=== PATIENT | female | born 1950 | race Caucasian/White ===

== ENCOUNTER 2017-08-31 18:29 | Emergency (ER) ==
[2017-08-31 18:41] VITALS: BP 151/80; TEMP 99.3; BMI 30.8
[2017-08-31] MEDS ORDERED: SODIUM CHLORIDE 500 ML IV STA (19:19)
[2017-08-31] MEDS ORDERED: ZOFRAN 4 MG/2 ML IVP STA (19:19)
--- NOTE | 2017-08-31 19:22 | ED.PDOC ---
General ED Provider: Dr. CUATE CHRISTENSEN Chief Complaint: Diarrhea Stated Complaint: Came for the nausea vomiting since noon, not able to keep anything down, Time Seen by Physician: 19:20 Mode of Arrival: Stretcher Information Source: Patient Primary Care Provider: TITO MONIQUE Nursing and Triage Documentation Reviewed and Agree: Yes Reviewed sepsis parameters & appropriate labs ordered?: Yes System Inflammatory Response Syndrome: Not Applicable Sepsis Protocol: For patient's 13 years and over: Temp is 96.8 and below OR 101 and greater Pulse >90 BPM Resp >20/minute Acutely Altered Mental Status Are patient's symptoms suggestive of a new infection, such as: -Pneumonia -Skin, Soft Tissue -Endocarditis -UTI -Bone, Joint Infection -Implantable Device -Acute Abdominal Infection -Wound Infection -Meningitis -Blood Stream Catheter Infection -Unknown GI Complaint Exam - Vomiting/Diarrhea Complaint/Exam Symptoms Are: Resolved (here for 1 hr none) Episodes of Vomiting over last 24 Hours: 4 Initial Severity: Moderate Current Severity: None Character of Vomiting: Reports: Non-bilious Character of Diarrhea: Reports: Watery Aggravating: Reports: Food, Liquids Alleviating: Reports: None Associated Signs and Symptoms: Reports: Cramping. Denies: Dizziness, Light- headedness, Melena, Hematemesis, Fever, Abdominal pain Non-GI Risk Factors: Reports: None Surgical Obstruction Risk Factors: Reports: None Related Surgical History: Reports: None Abdominal Findings: Absent: Pulsatile mass, Abdominal distention, Unequal femoral pulses, Rebound tenderness Differential Diagnoses: Dehydration, Bacterial Gastroenteritis Review of Systems - Review Of Systems Constitutional: Reports: Malaise, Weakness Eyes: Reports: No symptoms Ears, Nose, Mouth, Throat: Reports: No symptoms Respiratory: Reports: No symptoms Cardiac: Reports: No symptoms GI: Reports: Diarrhea, Nausea, Vomiting : Reports: No symptoms Musculoskeletal: Reports: No symptoms Skin: Reports: No symptoms Neurological: Reports: No symptoms Endocrine: Reports: No symptoms Hematologic/Lymphatic: Reports: No symptoms All Other Systems: Reviewed and Negative Past Medical History - Past Medical History Previously Healthy: Yes Endocrine: Reports: Dyslipidemia Cardiovascular: Reports: CAD (s/p stents), Hypertension Respiratory: Reports: None Hematological: Reports: None Gastrointestinal: Reports: None Genitourinary: Reports: Kidney stones Neuro/Psych: Reports: None Musculoskeletal: Reports: Joint Pain Cancer: Reports: None Last Menstrual Period: unknown - Surgical History General Surgical History: Reports: Hysterectomy (partial x 2 ), Appendectomy, Cholecystectomy, Orthopedic (knee surgery), Other (h/o small bowel surgery secondary to adhesions) - Family History Family History: Reports: None - Social History Smoking Status: Former smoker Hx Substance Use: No Alcohol Screening: None Physical Exam - Physical Exam Appearance: Ill-appearing, Thin Ill-appearing: Mild Eyes: EOMI ENT: Ears normal, Nose normal, Oropharynx normal Respiratory: Airway patent, Breath sounds clear, Breath sounds equal, Respirations nonlabored Cardiovascular: RRR, Pulses normal, No rub, No murmur GI/: Soft (distended.), No masses, No Organomegaly, Tender (diffuse.), Bowel sounds hypoactive Musculoskeletal: Normal strength, ROM intact, No edema, No calf tenderness Skin: Warm, Dry, Normal color Neurological: Sensation intact, Motor intact, Reflexes intact, Cranial nerves intact, Alert, Oriented Psychiatric: Affect appropriate, Mood appropriate Interpretation - Radiology Interpretation Radiology Interpretation By: Radiologist Radiology Results: Positive Exam Interpreted: CT Scan Critical Care Note - Critical Care Note Total Time (mins): 30 Course - Course Hematology/Chemistry: 08/31/17 19:00 08/31/17 19:00 Orders, Labs, Meds: Lab Review 08/31/17 08/31/17 08/31/17 19:00 19:00 19:22 WBC 18.48 H RBC 4.67 Hgb 14.6 Hct 43.1 MCV 92.3 MCH 31.3 H MCHC 33.9 RDW Coeff of Nazario 13.3 Plt Count 223 Immature Gran % (Auto) 0.4 Neut % (Auto) 80.9 Lymph % (Auto) 8.4 L [place] % (Auto) 9.3 Eos % (Auto) 0.7 Baso % (Auto) 0.3 Immature Gran # (Auto) 0.1 Neut # (Auto) 14.9 H Lymph # (Auto) 1.6 [place] # (Auto) 1.7 Eos # (Auto) 0.1 Baso # (Auto) 0.1 Sodium 139 Potassium 4.1 Chloride 105 Carbon Dioxide 18 L Anion Gap 20.1 BUN 19 H Creatinine 0.84 Estimated GFR (MDRD) 67.00 BUN/Creatinine Ratio 22.61 Glucose 145 H Calcium 10.0 Total Bilirubin 2.2 H AST 52 H ALT 44 Alkaline Phosphatase 172 H Total Protein 8.2 H Albumin 3.9 Globulin 4.3 Albumin/Globulin Ratio 0.91 Amylase 49 Lipase 24 Influ A Molecular Assay Negative by naat Influ B Molecular Assay Negative by naat Orders Category Date Time Status AMYLASE Stat LAB 08/31/17 19:00 Completed CBC W/ AUTO DIFF Stat LAB 08/31/17 19:00 Completed COMPREHENSIVE METABOLIC PANEL Stat LAB 08/31/17 19:00 Completed FLU A/B MOLECULAR Stat LAB 08/31/17 19:22 Completed LIPASE Stat LAB 08/31/17 19:00 Completed 0.9 % Sodium Chloride [Saline Flush] MEDS 08/31/17 19:19 Ordered 1 syr IVF PRN PRN Ondansetron HCl/Pf [Zofran 4 mg/2 ml] MEDS 08/31/17 19:19 Discontinued 4 mg IVP ONCE STA Sodium Chloride 0.9% [Sodium Chloride] 500 ml MEDS 08/31/17 19:[address] ABDOMEN/PELVIS WO CONTRAST Stat RADS 08/31/17 19:19 Completed Medications Generic Name Dose Route Start Last Admin Trade Name Freq PRN Reason Stop Dose Admin Sodium Chloride 1 syr 08/31/17 19:19 08/31/17 19:30 Saline Flush IVF 1 syr PRN PRN Administration To flush IV Discontinued Medications Generic Name Dose Route Start Last Admin Trade Name Freq PRN Reason Stop Dose Admin Sodium Chloride 500 mls @ 500 mls/hr 08/31/17 19:19 08/31/17 19:27 Sodium Chloride IV 08/31/17 20:18 500 mls/hr BOLUS STA Administration Ondansetron HCl 4 mg 08/31/17 19:19 08/31/17 19:30 Zofran 4 Mg/2 Ml IVP 08/31/17 19:20 4 mg ONCE STA Administration Vital Signs: Temp Pulse Resp BP Pulse Ox 08/31/17 18:32 99.3 F 79 20 151/80 H 94 L Departure - Departure Time of Disposition: 20:40 Disposition: TSF SHORT-TRM HOSP Discharge Problem: Gastroenteritis, SBO (small bowel obstruction) Instructions: Gastroenteritis (ED) Condition: Stable Pt referred to PMD for follow-up: Yes IPMP verified?: No Additional Instructions: Talked to the family and discussed about the findings of possible SBO, 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 scan findings, will be transferring her to [facility] Allergies/Adverse Reactions: Allergies acetaminophen [From Tylenol] Adverse Reaction (Verified 08/31/17 18:42) codeine Adverse Reaction (Verified 04/14/14 12:43) hydromorphone HCl [From Dilaudid] Adverse Reaction (Verified 04/14/14 12:43) latex Adverse Reaction (Verified 04/14/14 12:43) meperidine HCl [From Demerol] Adverse Reaction (Verified 04/14/14 12:43) morphine Adverse Reaction (Verified 04/14/14 12:43) Home Medications: Ambulatory Orders Amlodipine Besylate [Norvasc] 5 mg PO BID 04/14/14 Aspirin [Aspirin Chewable] 81 mg PO DAILYWM 04/14/14 Clopidogrel Bisulfate [Clopidogrel] 75 mg PO DAILY 04/14/14 Fluticasone Propionate 16 gm NS DAILY 04/14/14 Potassium Chloride [K-Dur] 10 meq PO DAILY 04/14/14 Pravastatin Sodium [Pravachol] 40 mg PO BEDTIME 04/14/14 Dicyclomine HCl 10 mg PO Q6HR PRN 08/31/17 Hydrocodone/Acetaminophen [Hydrocodon-Acetaminophen 5-325] 1 each PO BID PRN 12/13 Disposition Discussed With: Patient, Family
--- NOTE | 2017-08-31 20:09 | CT ---
EXAM: CT abdomen pelvis without intravenous contrast 08/31/2017. Sagittal and coronal reformatted i mages obtained HISTORY: Gastroenteritis COMPARISON: 06/27/2015 FINDINGS: Subtle nodular contours of the anterior liver. Correlate for possible cirrhosis. The gallbladder has been removed. The adrenal glands and kidneys show no acute abnormality. Benign-appearing renal cysts. The spleen pancreas show no acute process. Aortoiliac stents are in place. Mildly dilated distal small bowel with air-fluid levels. Mild mucosal thickening of small bowel as s een anteriorly on image 85. These findings may represent enteritis/ileus. Surgical anastomoses of distal small bowel in the right lower quadrant. Multiple sites of fat containing ventral hernia. No bowel herniation. No free air or free fluid. IMPRESSION: 1. Subtle nodular contour of the liver. Correlate for cirrhosis. 2. Proximal to the site of surgical anastomoses the small bowel appears fluid-filled and mildly dila kya. Mild mucosal thickening. Multiple air fluid levels. This likely relates to enteritis/ileus. 3. If there is clinical suspicion for early or partial small bowel obstruction then small bowel seri es could be performed. 4. Multifocal fat containing ventral hernia. No bowel herniation. 5. Additional findings as above.
[2017-08-31] MEDS ORDERED: LIDOCAINE JELLY 2% MUCOUSMEMB STA (20:47)
== END 2017-08-31 21:34 | disposition short-term general hospital (02) ==
LOC: ED 18:29
DX: K52.9 Noninfective gastroenteritis and colitis, unspecified (principal); R53.1 Weakness; I10 Essential (primary) hypertension; E78.5 Hyperlipidemia, unspecified; I25.10 Atherosclerotic heart disease of native coronary artery without angina pectoris; Z95.5 Presence of coronary angioplasty implant and graft; Z87.442 Personal history of urinary calculi
CPT/HCPCS: 36415; 80053; 82150; 83690; 85025; 87502; 96361; 96374; 99285

== ENCOUNTER 2017-08-31 21:29 | Outpatient (CLI) | payer OTHER ==
[2017-08-31 18:41] VITALS: BMI 30.8
== END 2017-08-31 21:30 | disposition home or self-care (01) ==
LOC: AMBL 21:29
PROVIDERS: ATTEND Emergency Medicine
DX: K56.609 Unspecified intestinal obstruction, unspecified as to partial versus complete obstruction (principal)

== ENCOUNTER 2018-07-26 06:32 | Outpatient (CLI) ==
[2018-07-26] MEDS ORDERED: ATROPINE SULFATE PFS ONE (07:14)
[2018-07-26] MEDS ORDERED: DOBUTAMINE 500 MG-D5W 250 ML 250 ML IV ONE (07:14)
[2018-07-26] MEDS ORDERED: ATROPINE SULFATE PFS IVP STA (08:33)
[2018-07-26] MEDS ORDERED: DOBUTAMINE 500 MG-D5W 250 ML IV ONE (08:33)
--- NOTE | 2018-07-27 13:18 | ECHO2D ---
Date of Exam: 07/26/18 Ordering Physician: DR. TITO MONIQUE Room #: OP Reason for Echo: SOB, SURGICAL CLEARANCE M-Mode Normal Adult Results LV Dimensions Normal Adult Results AoV Opening excursions >1.6 >1.6 LVEDD-base- 3.5-5.8 4.8 Ao root dimensions 2.0-3.7 3.1 LVESD-base- 3.1-4.6 L. Atrium dimensions 1.9-3.8 3.6 Post. Wall thickness 0.8-1.1 1.1 IV septum (thickness) 0.7-1.2 1.1 Post. Wall excursion 0.72-1.3 NORMAL Septal motion NORMAL Systolic motion R. Ventricular cavity 1.5-2.0 NORMAL LVEF 60% 60% Paradoxical septal wall motion NORMAL 2-D : 2-D M Mode Echocardiogram was performed using apical four chamber and left parasternal long and short axis views. Mitral, tricuspid and aortic valves appear to be normal. Contractility of the left ventricle seems to be normal, so is the cavity size. Left atrial cavity size and aortic root appear to be normal. There is no pericardial effusion. There is no thrombus noted in the left ventricular or left aortic cavity. No mitral valve prolapse noted. M-MODE: MV: NORMAL AV: NORMAL TV: NORMAL PV: CHAMBER SIZE: NORMAL WALL MOTION: NORMAL PERICARDIUM: NORMAL INTERPRETATION: 1. NORMAL 2 "D" "M" ECHO MTDD
--- NOTE | 2018-07-27 13:21 | ECHOSTRESS ---
Date of Exam: 07/26/18 Ordering Physician: DR. TITO MONIQUE Reason for Echo: SOB, SURGICAL CLEARANCE, DOBUTAMINE STRESS--NO ISCHEMIA M-Mode Normal Adult Results LV Dimensions Normal Adult Results AoV Opening excursions >1.6 LVEDD-base- 3.5-5.8 Ao root dimensions 2.0-3.7 LVESD-base- 3.1-4.6 L. Atrium dimensions 1.9-3.8 Post. Wall thickness 0.8-1.1 IV septum (thickness) 0.7-1.2 Post. Wall excursion 0.72-1.3 Septal motion Systolic motion R. Ventricular cavity 1.5-2.0 LVEF 60% Paradoxical septal wall motion 2-D: NORMAL LEFT VENTRICULAR CONTRACTILITY--RESTING AND WITH DOBUTAMINE INFUSION M-MODE: MV: AV: TV: PV: CHAMBER SIZE: WALL MOTION: NORMAL LEFT VENTRICULAR CONTRACTILITY--RESTING AND WITH DOBUTAMINE INFUSION PERICARDIUM: INTERPRETATION: 1. NORMAL LEFT VENTRICULAR CONTRACTILITY--RESTING AND WITH DOBUTAMINE INFUSION MTDD
--- NOTE | 2018-07-27 13:30 | DOBSTECHO ---
Date of Test: 07/26/18 Ordering Physician: DR. TITO MONIQUE Smoking History: QUIT 10 YRS AGO Reason for Examination: SOB, SURGICAL CLEARANCE Current Medications: NORVASC, PLAVIX, PRAVACHOL, NORCO, PROAIR Height: 58 "Weight: 146 LBS Target Heart Rate: 128/154 S-T Segment Stage Time HR BPM BP MMHG Rhythm +/- Elevation Depression Symptoms Control Sitting 60 BPM 138/78 SR X NONE Dobutamine 250mg/D5W 5cmg/KG/mn 10cmg/KG/mn 3:00 82 BPM 172/80 SR X NONE 15cmg/KG/mn 2:00 85 BPM SR X NONE 20cmg/KG/mn 2:00 100 BPM 170/66 SR X NONE 25cmg/KG/mn 2:00 112 BPM SR X NONE 30cmg/KG/mn 2:00 113 BPM 180/56 SR X NONE 35cmg/KG/mn :44 114 BPM 40cmg/KG/mn 4 MIN POST INFUSION z 86 BPM 166/66 SR X NO COMMENTS MIN POST INFUSION z DURATION OF INFUSION 11:44 MAXIMUM HEART RATE REACHED 114 BPM 98% OXYGEN SATURATION DURING DOBUTAMINE INFUSION Interpretation: 1. NO EVIDENCE OF ISCHEMIA FROM HEART RATE 60 BPM TO 114 BPM DURING DOBUTAMINE INFUSION 2. NO CHEST PAIN OR DISCOMFORT 3. NO ARRHYTHMIAS 4. NORMAL LEFT VENTRICULAR CONTRACTILITY--RESTING AND WITH DOBUTAMINE INFUSION MTDD
== END 2018-07-26 06:33 | disposition home or self-care (01) ==
LOC: CAR 06:32
PROVIDERS: ATTEND Internal Medicine
DX: R06.02 Shortness of breath (principal)

== ENCOUNTER 2018-08-16 10:14 | Observation (INO) ==
--- NOTE | 2018-08-16 10:45 | ED.PDOC ---
General ED Provider: Dr. BIANCA RAMIREZ Chief Complaint: Abnormal Labs Stated Complaint: Has a Low Potassium level.Had recent Lt total knee arthoplasty due to infected joint. Now receiving daily IV antibiotic therapy. Routine lab obtained and found low potassium. Referred to ER by Dr Monique. Accompanied by her daughter. Time Seen by Physician: 10:40 Mode of Arrival: Walk-In Information Source: Patient, Family Exam Limitations: No limitations Primary Care Provider: TITO MONIQUE Referred to ED by: PCP Nursing and Triage Documentation Reviewed and Agree: Yes Does patient meet sepsis criteria?: No If yes, has appropriate treatment been initiated?: No System Inflammatory Response Syndrome: Not Applicable Sepsis Protocol: For patient's 13 years and over: Temp is 96.8 and below OR 101 and greater Pulse >90 BPM Resp >20/minute Acutely Altered Mental Status Are patient's symptoms suggestive of a new infection, such as: -Pneumonia -Skin, Soft Tissue -Endocarditis -UTI -Bone, Joint Infection -Implantable Device -Acute Abdominal Infection -Wound Infection -Meningitis -Blood Stream Catheter Infection -Unknown Miscellaneous Complaint Exam - Wound Recheck/Suture Removal Exam Surgical Site: Lt Knee Initial Severity: None Current Severity: None Associated Signs and Symptoms: Denies: Redness, Swelling, Pain, Discharge, Fever , Chills, Other Wound Findings: Absent: Mass, Joint erythema Incision: Present: Normal Wound Margins: Present: Well approximated Drainage: Present: None Number of [place] Removed: 10 Differential Diagnoses: Other (hypokalemia) Review of Systems - Review Of Systems Constitutional: Reports: No symptoms Eyes: Reports: No symptoms Ears, Nose, Mouth, Throat: Reports: No symptoms Respiratory: Reports: No symptoms Cardiac: Reports: No symptoms GI: Reports: No symptoms : Reports: No symptoms Musculoskeletal: Reports: No symptoms Skin: Reports: No symptoms Neurological: Reports: No symptoms Endocrine: Reports: No symptoms Hematologic/Lymphatic: Reports: No symptoms All Other Systems: Reviewed and Negative Past Medical History - Past Medical History Previously Healthy: Yes Endocrine: Reports: Dyslipidemia Cardiovascular: Reports: CAD (s/p stents), Hypertension Respiratory: Reports: None Hematological: Reports: None Gastrointestinal: Reports: None Genitourinary: Reports: Kidney stones Neuro/Psych: Reports: None Musculoskeletal: Reports: Joint Pain Cancer: Reports: None Last Menstrual Period: menopause - Surgical History General Surgical History: Reports: Hysterectomy (partial x 2 ), Appendectomy, Cholecystectomy, Orthopedic (knee surgery), Other (h/o small bowel surgery secondary to adhesions) - Family History Family History: Reports: None - Social History Smoking Status: Former smoker Hx Substance Use: No Alcohol Screening: None Physical Exam - Physical Exam Appearance: Well-appearing Ill-appearing: None Pain Distress: None Eyes: CECILIA, EOMI, Conjunctiva clear Neck: Supple Respiratory: Airway patent, Breath sounds clear, Breath sounds equal, Respirations nonlabored Cardiovascular: RRR, Pulses normal, No rub, No murmur GI/: Soft, Nontender, No masses, Bowel sounds normal, No Organomegaly Musculoskeletal: Normal strength (Lt knee surg site healing well), ROM intact, No edema, No calf tenderness Skin: Warm, Dry, Normal color Neurological: Sensation intact, Motor intact, Reflexes intact, Cranial nerves intact, Alert, Oriented Physician Notification - Case Discussed Physician Notified: Dr Monique beginning at 12:15, 1300 and reached him at 1440 hrs Physician Notified: admit patient Critical Care Note - Critical Care Note Total Time (mins): 60 Course - Course Hematology/Chemistry: 08/16/18 10:55 08/16/18 10:55 Orders, Labs, Meds: Lab Review 08/16/18 08/16/18 10:55 10:55 WBC 6.25 RBC 3.38 L Hgb 10.1 L Hct 30.8 L MCV 91.1 MCH 29.9 MCHC 32.8 RDW Coeff of Nazario 13.2 Plt Count 169 Immature Gran % (Auto) 0.2 Neut % (Auto) 48.9 Lymph % (Auto) 32.2 [place] % (Auto) 10.7 H Eos % (Auto) 7.4 H Baso % (Auto) 0.6 Immature Gran # (Auto) 0.0 Neut # (Auto) 3.1 Lymph # (Auto) 2.0 [place] # (Auto) 0.7 Eos # (Auto) 0.5 Baso # (Auto) 0.0 Sodium 140.1 Potassium 2.74 L* Chloride 100.9 Carbon Dioxide 32.5 H Anion Gap 9.44 BUN 6.4 L Creatinine 0.64 Estimated GFR (MDRD) 92.00 BUN/Creatinine Ratio 10.00 Glucose 109.0 H Calcium 9.06 Magnesium 1.89 Total Bilirubin 1.14 AST 35.7 ALT 13.8 Alkaline Phosphatase 163.2 H Total Protein 7.06 Albumin 3.57 Globulin 3.49 Albumin/Globulin Ratio 1.02 Orders Category Date Time Status EKG-(ED ONLY) Stat CARDIO 08/16/18 10:44 Completed IV [ED IV/MEDIPORT/POWERPORT] .ONCE EMERGENCY 08/16/18 10:44 Active CBC W/ AUTO DIFF Stat LAB 08/16/18 10:55 Completed CMP [COMPREHENSIVE METABOLIC PANEL] Stat LAB 08/16/18 10:55 Completed MAGNESIUM Stat LAB 08/16/18 10:55 Completed 0.9 % Sodium Chloride [Saline Flush] MEDS 08/16/18 10:44 Active 1 syr IVF PRN PRN Potassium Chloride [K-Dur] MEDS 08/16/18 11:57 Discontinued 20 meq PO ONCE STA Potassium Chloride [Potassium Chloride Premix Run] 20 MEDS 08/16/18 11:52 Discontinued meq Premix 100 ml Water 2 bag IV ONCE Potassium Chloride [Potassium Chloride Premix Run] 200 MEDS 08/16/18 12:01 Discontinued ml IV .STK-MED Medications Generic Name Dose Route Start Last Admin Trade Name Freq PRN Reason Stop Dose Admin Albuterol Sulfate 1 puff 08/16/18 15:30 Proair Hfa IH Q6H PRN BRONCHOSPASM Amlodipine Besylate 2.5 mg 08/16/18 21:00 08/16/18 20:13 Norvasc PO 2.5 mg BID HENRI Administration Clopidogrel Bisulfate 75 mg 08/17/18 09:00 Plavix PO DAILY HENRI Non-Formulary Medication 1 gm 08/16/18 20:00 Meropenem [Meropenem] IV 0400,1200,2000 HENRI Oxycodone/Acetaminophen 1 tab 08/16/18 15:24 08/16/18 16:56 Percocet 10-325 PO 1 tab Q6H PRN Administration Pain Pravastatin Sodium 40 mg 08/16/18 21:00 08/16/18 20:14 Pravachol PO 40 mg BEDTIME HENRI Administration Rivaroxaban 10 mg 08/16/18 18:30 08/16/18 18:22 Xarelto PO 10 mg 1800 HENRI Administration Sodium Chloride 1 syr 08/16/18 10:44 Saline Flush IVF PRN PRN To flush IV Sodium Chloride 1 syr 08/16/18 21:00 08/16/18 20:09 Saline Flush IVF Not Given Q8HR HENRI Vancomycin HCl 1 gm 08/16/18 18:00 08/16/18 19:23 Vancomycin IV 08/19/18 17:59 1 gm 0600,1800 HENRI Administration Discontinued Medications Generic Name Dose Route Start Last Admin Trade Name Freq PRN Reason Stop Dose Admin Albuterol Sulfate 1 puff 08/16/18 15:26 Proair Hfa IH Q6H PRN WHEEZING/SOA Potassium Chloride 20 meq/ 200 mls @ 100 mls/hr 08/16/18 11:52 08/16/18 12:11 Sterile Water IV 08/16/18 13:51 100 mls/hr ONCE STA Administration Potassium Chloride 40 meq/ 200 mls @ 50 mls/hr 08/16/18 15:02 08/16/18 17:05 Sterile Water IV 08/16/18 19:01 50 mls/hr ONCE STA Administration Potassium Chloride 20 meq 08/16/18 11:57 08/16/18 12:07 K-Dur PO 08/16/18 11:58 20 meq ONCE STA Administration Potassium Chloride 20 meq 08/16/18 14:54 08/16/18 15:04 K-Dur PO 08/16/18 14:55 20 meq ONCE STA Administration Rivaroxaban 10 mg 08/17/18 09:00 Xarelto PO DAILY [facility] Vital Signs: Temp Pulse Resp BP Pulse Ox 08/16/18 10:15 98.6 F 79 20 148/71 H 97 Departure - Departure Time of Disposition: 14:40 Disposition: ADMITTED INPATIENT Discharge Problem: Hypokalemia Condition: Stable Pt referred to PMD for follow-up: Yes IPMP verified?: No Allergies/Adverse Reactions: Allergies acetaminophen [From Tylenol] Adverse Reaction (Verified 08/16/18 10:26) codeine Adverse Reaction (Verified 08/16/18 10:26) hydromorphone HCl [From Dilaudid] Adverse Reaction (Verified 08/16/18 10:26) latex Adverse Reaction (Verified 08/16/18 10:26) meperidine HCl [From Demerol] Adverse Reaction (Verified 08/16/18 10:26) morphine Adverse Reaction (Verified 08/16/18 10:26) Home Medications: Ambulatory Orders Amlodipine Besylate [Norvasc] 2.5 mg PO BID 04/14/14 Clopidogrel Bisulfate [Clopidogrel] 75 mg PO DAILY 04/14/14 Potassium Chloride [K-Dur] 10 meq PO DAILY 04/14/14 Pravastatin Sodium [Pravachol] 40 mg PO BEDTIME 04/14/14 0.9 % Sodium Chloride [Sodium Chloride] 1 syr IVF PRN PRN 08/16/18 Albuterol Sulfate [Proventil Hfa] 6.7 gm IH Q6HR PRN 08/16/18 Heparin Sodium,Porcine/Pf [Heparin 10 Unit/10 ml (1/ml)] 30 unit IV PRN PRN Meropenem 1 gm IV TID 08/16/18 Oxycodone-Acetaminophen 10-325 [Percocet 10-325] 1 tab PO Q6H PRN 08/16/18 Rivaroxaban [Xarelto] 10 mg PO 1800 08/16/18 Vancomycin HCl [Vancomycin] 1 gm IV Q12HR 08/16/18 Disposition Discussed With: Patient, Family Additional Comments Additional Comments: 11:40 hrs. Potassium level at 2.7. Initiating IV KCL rider and po Kdur. 1215 HrsCalls to request admission for admission from Dr Monique. 1300 Nursing attemtping to contact Dr Monique for admission. [address] Monique for admission. Request continous administration of KCL IVPB plus oral Kdur 20 meq 2 po qid and monitor serum K+ q 6 hrs. 1430 Spoke with
[2018-08-16] MEDS ORDERED: POTASSIUM CHLORIDE PREMIX RUN 20 MEQ in PREMIX 100 ML WATER 2 BAG IV STA (11:52)
[2018-08-16] MEDS ORDERED: K-DUR PO STA ×2 (11:57→14:54)
[2018-08-16] MEDS ORDERED: POTASSIUM CHLORIDE PREMIX RUN 200 ML IV ONE ×2 (12:01→17:03)
[2018-08-16] MEDS ORDERED: POTASSIUM CHLORIDE PREMIX RUN 40 MEQ in PREMIX 100 ML WATER 2 BAG IV STA (15:02)
[2018-08-16] MEDS ORDERED: ALBUTEROL SULFATE IH PRN (15:12)
[2018-08-16] MEDS ORDERED: OXYCODONE ACETAMINOPHEN PO PRN (15:12)
[2018-08-16] MEDS ORDERED: PROAIR HFA IH PRN ×2 (15:26→15:30)
[2018-08-16] MEDS: PERCOCET 10-325 PO PRN (16:56)
[2018-08-16 17:07] VITALS: BMI 28.0
[2018-08-16] MEDS ORDERED: HUMULIN R ONE (17:45)
[2018-08-16] MEDS ORDERED: XARELTO PO SCH (18:30)
[2018-08-16] MEDS: VANCOMYCIN IV SCH (19:23)
[2018-08-16] MEDS: NORVASC PO SCH (20:13)
[2018-08-16] MEDS ORDERED: NON-FORMULARY MEDICATION (Amlodipine Besylate [Norvasc] 2.5 MG) PO SCH (21:00)
[2018-08-16] MEDS ORDERED: PRAVACHOL PO SCH (21:00)
[2018-08-16] MEDS ORDERED: NON-FORMULARY MEDICATION (Pravastatin Sodium [Pravachol] 40 MG) PO SCH (21:00)
[2018-08-16] MEDS: MEROPENEM 1 GM IV SCH (22:51)
[2018-08-17] MEDS: HEPARIN SODIUM PORCINE IV PRN ×2 (00:09→12:52)
[2018-08-17] MEDS: [UNRECOGNIZED DRUG - OTHER] IV PRN ×2 (00:09→12:52)
[2018-08-17] MEDS: PERCOCET 10-325 PO PRN ×2 (02:19→09:00)
[2018-08-17] MEDS: MEROPENEM 1 GM IV SCH ×2 (04:13→11:50)
[2018-08-17] MEDS ORDERED: HUMULIN R ONE (04:56)
[2018-08-17 05:46] VITALS: BP 139/65; TEMP 97.9
[2018-08-17] MEDS: VANCOMYCIN IV SCH (05:57)
--- NOTE | 2018-08-17 07:55 | PN ---
DATE OF SERVICE: 08/16/18 SUBJECTIVE: The patient was seen and examined in the Emergency Room. She is going to be admitted for hypokalemia. The reason for hypokalemia not obvious. We will give Potassium supplements 120meq while she is in the hospital today and tomorrow the same dose will be given. Her Potassium will be checked in the morning. The patient is going to get Meropenem. The family is going to bring it before 8:00 so she can get her 8:00pm dose. The patient is going to be on Vancomycin. She is looking better. Left knee looks a lot better with no evidence of of infection , there are stable there. CONDITION: Stable. TIME SPENT: More than 30 minutes. Plan and coordination of the patient's care discussed in the presence of nurse. TREY
[2018-08-17] MEDS ORDERED: K-DUR PO STA (08:07)
[2018-08-17] MEDS: NORVASC PO SCH (08:18)
--- NOTE | 2018-08-17 08:32 | PCM.PROG ---
Attending Provider: ATTENDING PROVIDER: Dr. TITO MCQUEEN This patient is seen with Estrella Noland, Nurse Practitioner. DATE OF SERVICE: 08/17/18 SUBJECTIVE: This 67 year old WHITE/ F was hospitalized 08/16/18. Potassium is down to 3.1 this morning after supplementation yesterday. The patient is still weak. Hemoglobin is down due to hemodilution. REVIEW OF SYSTEMS: CONSTITUTIONAL: Weakness. No night sweats. No malaise, lethargy. No fever or chills. HEENT: Eyes: No visual changes. No eye pain. No eye discharge. ENT: No runny nose. No epistaxis. No sinus pain. No odynophagia. No congestion. RESPIRATORY: No cough, no congestion. No hemoptysis. No shortness of breath. CARDIOVASCULAR: No angina symptoms. No CHF symptoms. No atypical chest pain for CAD. No palpitations. No orthopnea.. GASTROINTESTINAL: No abdominal pain. No nausea or vomiting. No diarrhea or constipation. No hematemesis. No hematochezia. GENITOURINARY: No urgency. No frequency. No dysuria. No hematuria. No obstructive symptoms. No discharge. No pain. No significant abnormal bleeding. MUSCULOSKELETAL: No musculoskeletal pain; no joint swelling. NEUROLOGICAL: Awake, alert, oriented to time, place and person. No headache. No neck pain. No syncope. No seizures. No dizziness. PSYCHIATRIC: Not anxious. No depression. No suicidal thoughts. No homicidal thoughts. SKIN: No rash. No lesions. Left knee incision. ENDOCRINE: No unexplained weight loss. No weight gain. HEMATOLOGIC/LYMPHATIC: No anemia. No purpura. No petechiae. No prolonged or excessive bleeding. No palpable lymph nodes. PHYSICAL EXAMINATION: GENERAL: The patient is awake, alert and oriented, lying in bed in no distress. VITAL SIGNS: Temperature 97.9 F, Pulse 68, Respiratory Rate 18, BP 139/65, Pulse Ox 96% HEENT: Head normocephalic, atraumatic. Eyes: Extraocular muscles are intact. Pupils are equal, round and reactive to light and accommodation. Ears: No lesions. Nose appeared normal. Throat: No exudate or erythema. NECK: Supple. No JVD, no carotid bruit. No lymphadenopathy or thyromegaly. LUNGS: Diminished breath sounds. Clear to auscultation. Percussion note normal. Chest symmetrical. HEART: S1, S2, no S3. No murmurs. No cyanosis or clubbing. No ascites. Pulses: Dorsalis pedis and posterior tibial pulses +1 to +2 both sides. ABDOMEN: Soft. Non-tender. Bowel sounds active. No CVA tenderness. No mass felt. EXTREMITIES: Left knee incision intact, no signs or symptoms of infection. No edema. Full range of motion of all extremities, equal. NEUROLOGIC: No focal deficit. Cranial nerves II through XII are grossly intact. No headache, no double vision or headache. SKIN: Not dry. Intact. Turgor-normal. LYMPHATIC: No palpable lymph nodes/no lymphedema. MUSCULOSKELETAL: Normal joints with no swelling. Muscle tone is normal. LAB REVIEW: 08/17/18 07:00 08/17/18 07:00 08/17/18 07:00: Sodium 142.3, Potassium 3.17 L, Chloride 104.4, Carbon Dioxide 31.1 H, Anion Gap 9.97, BUN 9.3, Creatinine 0.62, Estimated GFR (MDRD) 95.00, BUN/Creatinine Ratio 15.00, Glucose 105.4, Calcium 8.62, Total Bilirubin 0.61, AST 26.1, ALT 12.5, Alkaline Phosphatase 145.5 H, Total Protein 6.51, Albumin 3.18 L, Globulin 3.33, Albumin/Globulin Ratio 0.95 08/17/18 07:00: WBC 5.74, RBC 2.93 L, Hgb 8.8 L, Hct 27.7 L, MCV 94.5, MCH 30.0 , MCHC 31.8, RDW Coeff of Nazario 13.6, Plt Count 161, Immature Gran % (Auto) 0.2, Neut % (Auto) 47.2, Lymph % (Auto) 32.4, Mora % (Auto) 10.5 H, Eos % (Auto) 9.2 H, Baso % (Auto) 0.5, Immature Gran # (Auto) 0.0, Neut # (Auto) 2.7, Lymph # ( Auto) 1.9, Mora # (Auto) 0.6, Eos # (Auto) 0.5, Baso # (Auto) 0.0 08/16/18 23:04: Sodium 142.9, Potassium 3.74, Chloride 105.1, Carbon Dioxide 30.8 H, Anion Gap 10.74 08/16/18 10:55: Sodium 140.1, Potassium 2.74 L*, Chloride 100.9, Carbon Dioxide 32.5 H, Anion Gap 9.44, BUN 6.4 L, Creatinine 0.64, Estimated GFR (MDRD) 92.00, BUN/Creatinine Ratio 10.00, Glucose 109.0 H, Calcium 9.06, Magnesium 1.89, Total Bilirubin 1.14, AST 35.7, ALT 13.8, Alkaline Phosphatase 163.2 H, Total Protein 7.06, Albumin 3.57, Globulin 3.49, Albumin/Globulin Ratio 1.02 08/16/18 10:55: WBC 6.25, RBC 3.38 L, Hgb 10.1 L, Hct 30.8 L, MCV 91.1, MCH 29.9 , MCHC 32.8, RDW Coeff of Nazario 13.2, Plt Count 169, Immature Gran % (Auto) 0.2, Neut % (Auto) 48.9, Lymph % (Auto) 32.2, Mora % (Auto) 10.7 H, Eos % (Auto) 7.4 H, Baso % (Auto) 0.6, Immature Gran # (Auto) 0.0, Neut # (Auto) 3.1, Lymph # ( Auto) 2.0, Mora # (Auto) 0.7, Eos # (Auto) 0.5, Baso # (Auto) 0.0 ASSESSMENT: 1. Acute hypokalemia 2. Repair of left total knee replacement with infection by Richar Atwood recently - has PICC line for IV antibiotics 3. Anemia - hemodilution PLAN: 1. Potassium 40 mEq now 2. Potassium 40 mEq at 11 a.m. 3. Serum potassium level at 1 p.m. 4. Anticipate possible discharge later this afternoon Plan and coordination of the patient's care discussed in the presence of Prison Teacher and nurse. CONDITION: Stable SCRIBED BY: AME CLARK Flat Lock Machine Operator scribed while in presence of service performed by Dr. Mcqueen/Estrella Noland APRN on 08/17/18 ([id number])
[2018-08-17] MEDS ORDERED: PLAVIX PO SCH (09:00)
[2018-08-17] MEDS ORDERED: NON-FORMULARY MEDICATION (Clopidogrel Bisulfate [Clopidogrel] 75 MG) PO SCH (09:00)
[2018-08-17] MEDS ORDERED: K-DUR PO ONE ×2 (09:00→11:00)
[2018-08-17] MEDS ORDERED: XARELTO PO SCH (09:00)
[2018-08-17] MEDS ORDERED: RIVAROXABAN 10 MG PO SCH (09:00)
--- NOTE | 2018-08-17 12:46 | HP ---
DATE OF SERVICE: 08/16/18 HISTORY OF PRESENT ILLNESS: This 67-year-old white female who recently had repair of left total knee arthroplasty due to an infected joint. She has been at home, has a PICC line, has been receiving IV Meropenem through the PICC by Home Health. [facility] did labs and found a low potassium. She then called the office and we sent her to the emergency room. PAST MEDICAL HISTORY: Dyslipidemia Coronary artery disease status post stent Hypertension History of nephrolithiasis Generalized polyarthritis PAST SURGICAL HISTORY: Hysterectomy Appendectomy Cholecystectomy History of small bowel surgery secondary to adhesions Recent repair/revision of left total knee replacement with osteomyelitis REVIEW OF SYSTEMS: CONSTITUTIONAL: Positive for weakness. No night sweats. No malaise, lethargy. No fever or chills. HEENT: Eyes: No visual changes. No eye pain. No eye discharge. ENT: No runny nose. No epistaxis. No sinus pain. No sore throat. No odynophagia. No ear pain. No congestion. RESPIRATORY: No cough, no congestion. No hemoptysis. No shortness of breath. CARDIOVASCULAR: No angina symptoms. No CHF symptoms. No atypical chest pain for CAD. No palpitations. No PND. No orthopnea. GASTROINTESTINAL: No abdominal pain. No nausea or vomiting. No diarrhea or constipation. No hematemesis. No hematochezia. GENITOURINARY: No urgency. No frequency. No dysuria. No hematuria. No obstructive symptoms. No discharge. No pain. No significant abnormal bleeding. MUSCULOSKELETAL: Left knee pain. No joint swelling. NEUROLOGICAL: No headache. No neck pain. No syncope. No seizures. No dizziness. PSYCHIATRIC: Not anxious. No depression. No suicidal thoughts. No homicidal thoughts. SKIN: No rash. No lesions. No wounds. ENDOCRINE: No unexplained weight loss. No weight gain. HEMATOLOGIC/LYMPHATIC: No anemia. No purpura. No petechiae. No prolonged or excessive bleeding. No palpable lymph nodes. PERSONAL/FAMILY/SOCIAL HISTORY: She lives at home by herself. She is a former smoker. No alcohol or ilicit drug use. MEDICATIONS: (HOME) Clopidogrel 75 mg p.o. daily Norvasc 2.5 mg p.o. b.i.d. Pravachol 40 mg p.o. bedtime K-Dur 10 mEq p.o. daily Proventil Hfa 6.7 gm IH q.6hr p.r.n. Xarelto 10 mg p.o. 1800 Oxycodone-Acetaminophen 10-325 one tablet p.o. q.6h p.r.n. Meropenem 1 gm IV t.i.d. Heparin 30 unit IV p.r.n. Vancomycin 1 gm IV q.12hr Sodium Chloride 1 syringe IVF p.r.n. ALLERGIES: MEPERIDINE (FROM DEMEROL), HYDROMORPHINE (FROM DILAUDID), MORPHINE, CODEINE, ACETAMINOPHEN (FROM TYLENOL), LATEX PHYSICAL EXAMINATION: VITAL SIGNS: Temperature 98.6, heart rate 79, respiratory rate 20, BP 148/71, pulse ox 97%. HEENT: Head normocephalic, atraumatic. Eyes: Extraocular muscles are intact. Pupils are equal, round and reactive to light and accommodation. Ears: No lesions. Nose appeared normal. Throat: No exudate or erythema. NECK: Supple. No JVD, no carotid bruit. No lymphadenopathy or thyromegaly. LUNGS: Diminished breath sounds bilaterally. Clear to auscultation. Percussion note normal. Chest symmetrical. HEART: S1, S2, no S3. No murmurs. No cyanosis or clubbing. No ascites. Pulses: Dorsalis pedis and posterior tibial pulses +1 to +2 bilaterally. ABDOMEN: Soft. Nontender. Bowel sounds active. No CVA tenderness. No mass felt. EXTREMITIES: No leg edema. Full range of motion of all extremities, equal. NEUROLOGIC: No focal deficit. Cranial nerves II through XII are grossly intact. No headache, no double vision or headache. SKIN: Warm and dry. Intact. Turgor - normal. Left knee incision, heidy, clean, dry and intact. No redness or erythema. Minor bruising, minor swelling. No signs of infection. LYMPHATIC: No palpable lymph nodes/no lymphedema. MUSCULOSKELETAL: Normal joints with no swelling. Muscle tone is normal. In ER white count 6.25, hemoglobin 10.1, hematocrit 30.8, platelets 169. Sodium 140, potassium 2.7, BUN 6.4, creatinine 0.64. ASSESSMENT: 1. Acute hypokalemia. 2. Recent revision of left total knee replacement with osteomyelitis on IV Vancomycin and Meropenem. 3. Coronary artery disease. PLAN: 1. We will admit the patient. 2. Will start IV fluids at 75 cc/hr, NS with 20 mEq then start 40 mEq p.o. q.i.d. 3. Check serum potassium q.6hr. 4. EKG. 5. Routine telemetry orders. 6. CBC, CMP in the morning. 7. She is to continue her home medications and Xarelto. 8. We will follow her closely. TIME SPENT: More than 70 minutes. TREY
--- NOTE | 2018-08-18 14:50 | SSS ---
DATE OF SERVICE: 08/17/18 REASON FOR CONSULTATION/ADMISSION: Hypokalemia HISTORY OF PRESENT ILLNESS: Through outpatient labs discovered Potassium was low at 2.8. She currently is receiving treatment for infected left knee replacement Vancomycin and Meropenem IV via Home Health. Labs drawn through ER showed further depletion of Potassium at 2.74. REVIEW OF SYSTEMS: CONSTITUTIONAL: No night sweats. No fatigue, malaise, lethargy. No fever or chills. HEENT: Eyes: No visual changes. No eye pain. No eye discharge. ENT: No runny nose. No epistaxis. No sinus pain. No sore throat. No odynophagia. No ear pain. No congestion. RESPIRATORY: No cough, no congestion. No hemoptysis. No shortness of breath. CARDIOVASCULAR: No angina symptoms. No CHF symptoms. No atypical chest pain for CAD. No palpitations. No orthopnea. GASTROINTESTINAL: No abdominal pain. No nausea or vomiting. No diarrhea or constipation. No hematemesis. No hematochezia. GENITOURINARY: No dysuria. No hematuria. No obstructive symptoms. No discharge. No pain. No significant abnormal bleeding. MUSCULOSKELETAL: No musculoskeletal pain. No joint swelling. Weakness. NEUROLOGICAL: Awake, alert, oriented to time, place and person. No headache. No neck pain. No syncope. No seizures. No dizziness. PSYCHIATRIC: Not anxious. No depression. No suicidal thoughts. No homicidal thoughts. SKIN: No rash. No lesions. No wounds. ENDOCRINE: No unexplained weight loss. No weight gain. HEMATOLOGIC/LYMPHATIC: No anemia. No purpura. No petechiae. No prolonged or excessive bleeding. No palpable lymph nodes. PAST HISTORY: COPD Hypertension CAD status post stents 2009 and 2013 Dyslipidemia Kidney stones OUT right leg 2013 Osteoporosis Osteoarthritis Anxiety Depression Anemia Hysterectomy Cholecystectomy Partial colectomy-large intestine adhesions and IBS Left knee replacement, 08/16 last repair due to infection joint. Appendectomy times three. PERSONAL/FAMILY HISTORY/SOCIAL HISTORY: , resides at home with spouse. Daughter is supportive. Former smoker. No alcohol. Uses [facility]-nursing. Has crutches at home. Has wheelchair at home. PHYSICAL EXAMINATION: GENERAL: The patient is 67 year old female. VITAL SIGNS: Blood pressure 151/73, heart rate 74, respiratory rate 14, temperature 98.4, sats on room air 98%.Height 4'11 and 138 pounds. HEENT: Head normocephalic, atraumatic. Eyes: Extraocular muscles are intact. Pupils are equal, round and reactive to light and accommodation. Ears: No lesions. Nose appeared normal. Throat: No exudate or erythema. NECK: Supple. No JVD, no carotid bruit. No lymphadenopathy or thyromegaly. LUNGS: Clear to auscultation. Percussion note normal. Chest symmetrical. HEART: S1, S2, no S3. No murmurs. No cyanosis or clubbing. No ascites. Pulses: Dorsalis pedis and posterior tibial pulses +1 to +2 bilaterally. ABDOMEN: Soft. Nontender. Bowel sounds active. No CVA tenderness. No mass felt. EXTREMITIES: No edema. Full range of motion of all extremities, equal. Left knee heidy clean with mild swelling. NEUROLOGIC: No focal deficit. Cranial nerves II through XII are grossly intact. No headache, no double vision or headache. SKIN: Not dry. Intact. Turgor - normal. LYMPHATIC: No palpable lymph nodes/no lymphedema. MUSCULOSKELETAL: Normal joints with no swelling. Muscle tone is normal. Old/present records reviewed: Yes EDUCATION CARRIED OUT ABOUT: Hypokalemia Home Medications Followup Home Health ALLERGIES: Demerol Dilaudid Morphine Codeine Tylenol Latex MEDICATIONS: Proventil HFA Norvasc Plavix Heparin flush Meropenem Percocet K-Dur Pravachol Xarelto Vancomycin LABS/EKG'S/X-RAY/ECHO/ABG: WBC 5.74, hgb 8.8, hct 27.7, plt count 161, Sodium 142.3, potassium 3.17, Chloride 104.4, bicarb 31.1, BUN 9.3, Creatinine 0.62 and glucose 105.4. Wound culture negative, left knee. 08/16/18: Sodium 140.1, Potassium 2.74, Chloride 100.9, bicarb 32.5, BUN 6.4, Creatinine 0.64 and glucose 109. PROGRESS NOTES: See transcribed note for 08/17/18 and 08/16/18. Case Discussed with Attending Physician: Case Discussed with Family: Yes DIAGNOSES: 1. Hypokalemia 2. Anemia 3. Status post left knee surgery 4. PAD 5. CAD 6. COPD 7. Infected left knee status post surgery RECOMMENDATIONS/PLAN: 1. Discharge home 2. Resume [facility] 3. Follow up 08/09/18 with Adriano Mcqueen and Radha Mcqueen 08/23/18 @11. 4. patient to increase K-Dur to 20meq PO including IV antibiotics. TIME SPENT: More than 70 minutes. MTDD
--- NOTE | 2018-08-19 14:30 | PN ---
DATE OF SERVICE: 08/17/18 SUBJECTIVE: The patient was seen and examined with the Nurse Practitioner. Hypokalemia has resolved. Her left knee surgery seems to be stable, followed by Dr. Mcqueen. Continue IV antibiotics. Meropenem and Vancomycin. The patient is afebrile. The incision and stable looks good and clear. No evidence of infection. Cardiovascular status stable. The patient seems to be in good spirit. TIME SPENT: More than 30 minutes. Plan and coordination of the patient's care discussed in the presence of nurse. TREY
--- NOTE | 2018-08-19 14:31 | PN ---
08/16/18: Level 5 08/17/18: D as in discharge under observation. MTDD
== END 2018-08-17 14:20 | disposition home health service (06) ==
LOC: ED 10:14 → MEDSURG B 14:39 → INTOOBSV 14:39
PROVIDERS: ADMIT Internal Medicine; ATTEND Internal Medicine
DX: R79.9 Abnormal finding of blood chemistry, unspecified (principal); E87.6 Hypokalemia; D64.9 Anemia, unspecified; Z98.890 Other specified postprocedural states; I73.9 Peripheral vascular disease, unspecified; I25.10 Atherosclerotic heart disease of native coronary artery without angina pectoris; J44.9 Chronic obstructive pulmonary disease, unspecified
CPT/HCPCS: 36415; 80051; 80053; 83735; 84132; 85025; 87070; 87081; 93005; 93010; 96365; 96366; 96375; 96376; 99284

== ENCOUNTER 2018-09-27 06:52 | Outpatient (CLI) | payer OTHER | END 2018-09-27 07:38 | disposition short-term general hospital (02) | LOC: AMBL 06:52 | PROVIDERS: ATTEND Family Medicine | DX: M79.605 Pain in left leg (principal); M79.89 Other specified soft tissue disorders; W01.0XXA Fall on same level from slipping, tripping and stumbling without subsequent striking against object, initial encounter; Z96.652 Presence of left artificial knee joint; Z98.890 Other specified postprocedural states; S72.92XD Unspecified fracture of left femur, subsequent encounter for closed fracture with routine healing ==

== ENCOUNTER 2018-11-04 09:43 | Outpatient (CLI) ==
[2018-11-04] MEDS ORDERED: PROLIA SUBCUT STA (10:23)
[2018-11-04 13:36] VITALS: BP 128/69; TEMP 98.6
== END 2018-11-04 09:44 | disposition home or self-care (01) ==
LOC: OPMED 09:43
PROVIDERS: ATTEND Internal Medicine
DX: M85.80 Other specified disorders of bone density and structure, unspecified site (principal); Z87.81 Personal history of (healed) traumatic fracture
CPT/HCPCS: 96372

== ENCOUNTER 2019-03-06 09:15 | Outpatient (CLI) | payer OTHER ==
--- NOTE | 2019-03-06 10:10 | US ---
EXAMINATION: Retroperitoneal renal sonogram. HISTORY: Cyst TECHNIQUE: Real time with duplex. COMPARISON: Same day CT, CT dated 08/31/2017 FINDINGS: The right kidney measures 10.2 x 5.2 x 4.9 cm. Anechoic inferior pole cyst measures 1.8 x 1.7 x 3.1 cm. Small anechoic cyst in the mid pole measures 1.2 x 0.8 x 1.0 cm. No abnormal blood flow and yea r cyst. No hydronephrosis or obvious calculi. The left kidney measures 13 x 5.3 x 3.9 cm. Anechoic superior pole cyst measures through point 4 x 3 .6 x 3.4 cm. No internal blood flow. No hydronephrosis or obvious calculi. Visualized bladder is unremarkable. Bilateral ureteral jets are visualized. IMPRESSION: 1. No acute findings. 2. Bilateral renal cysts measuring up to 3.1 cm in the right mid/inferior pole and 3.6 cm in the lef t superior pole.
--- NOTE | 2019-03-06 13:38 | CT ---
EXAM: CT Abdomen Pelvis Without contrast HISTORY: History of AAA COMPARISON: 08/31/2017 TECHNIQUE: CT Abdomen Pelvis performed Without intravenous contrast. Coronal and sagital images obta ined. FINDINGS: Clear lung bases. Normal heart size. The liver, pancreas, spleen, and adrenals are unremarkable. Prior cholecystectomy. Increased size of the left superior pole water density cyst measuring 3.7 cm, previously 3.1 cm. Right inferior pole water density cyst measures 1.7 cm right superior/mid pole 1 cm water density cyst is unchanged. No bowel obstruction or abnormal bowel wall thickening. Operative change of the right lower quadrant small bowel with radiopaque sutures. Appendix is not definitely visualized. No evidence of appendi citis. No adenopathy. Normal diameter aorta. Redemonstrated aortobi-iliac endograft stents which are similar to prior exam . Mild scattered atherosclerotic calcifications. Evaluation is limited secondary to lack of IV cont rast. No abnormal fluid collection, free fluid or free air. similar appearance of the three small f at containing ventral/periumbilical hernias. No acute osseous abnormality. Partially visualized lef t femoral hardware. IMPRESSION: 1. No acute intra-abdominal finding. 2. Status post aortobi-iliac stent grafts. 3. Postoperative changes as above 4. Stable bilateral renal cysts. 5. Atherosclerosis.
== END 2019-03-06 09:16 | disposition home or self-care (01) ==
LOC: RAD 09:15
PROVIDERS: ATTEND Internal Medicine
DX: N28.1 Cyst of kidney, acquired (principal)

== ENCOUNTER 2019-12-18 12:21 | Inpatient (IN) ==
[2019-12-18] MEDS ORDERED: TYLENOL PO PRN (12:29)
[2019-12-18] MEDS ORDERED: ATROPINE SULFATE PFS IVP PRN (12:29)
[2019-12-18] MEDS ORDERED: VISTARIL INJ IM PRN (12:29)
[2019-12-18] MEDS ORDERED: NITROSTAT SL PRN (12:29)
[2019-12-18 12:47] VITALS: BMI 30.5
[2019-12-18 13:01] LABS: HEMATOCRIT 40.9 % (37.0-47.0)
[2019-12-18] MEDS: VENTOLIN HFA (PER PUFF-WITH SPACER) IH SCH ×2 (13:04→19:40)
[2019-12-18] MEDS: LEVAQUIN 500 MG/100 ML D5W 500 MG/100 ML BAG IV SCH (13:46)
[2019-12-18] MEDS: NORCO 5-325 PO PRN ×2 (13:56→21:09)
[2019-12-18] MEDS: SOLU-MEDROL 125 MG IVP SCH ×2 (13:57→21:09)
[2019-12-18] MEDS: LASIX IVP SCH (13:57)
--- NOTE | 2019-12-18 14:23 | DI ---
EXAM: Chest one view HISTORY: Shortness of breath COMPARISON: 06/27/2015 TECHNIQUE: Single view of the chest was performed FINDINGS: Left upper paramediastinal/upper lung opacity. There is no pleural effusion or pneumothor ax. The heart is normal in size. Atherosclerosis. There are no acute abnormalities of the bones. IMPRESSION: 1. Unexpected finding: Left upper paramediastinal/upper lung opacity is of indeterminate etiology. This could reflect vascular summation artifact. Mass or other etiology cannot be excluded. Recomme nd correlation with CT with contrast. 2. Cardiomegaly.
--- NOTE | 2019-12-18 16:58 | CT ---
EXAM: CT chest with contrast HISTORY: Left upper lobe opacity COMPARISON: Radiograph same day TECHNIQUE: CT chest performed with intravenous contrast. Coronal and sagittal reformatted images ob tained. FINDINGS: Thoracic inlet unremarkable. Heart normal in size. No pericardial effusion. Aorta jennifer l in caliber. Moderate atherosclerosis. Small hiatal hernia. No lymphadenopathy identified in the chest. Liver diffusely decreased and echogenicity. Patient status post cholecystectomy. Left renal cyst measures 3.7 cm. No acute abnormalities of the bones. Degenerative change in the spine. Beatrice ral minimal to mild compression deformities with chronic features. The central airway patent. Mild ground-glass in the right upper lobe anteriorly. No left upper lobe or left superior mediastinal mas s. Mild prominence of the mediastinal fat in this region likely accounts for the finding on radiogra ph. IMPRESSION: 1. No left upper lobe or left superior mediastinal mass. Mild prominence of the mediastinal fat in this region likely accounts for the finding on radiograph. 2. Mild ground-glass in the right upper lobe anteriorly, may reflect mild atelectasis and/or pneumon itis. 3. Atherosclerosis . 4. Hepatic steatosis
[2019-12-18] MEDS: K-DUR PO SCH (17:27)
[2019-12-18] MEDS: ATIVAN PO PRN (21:09)
[2019-12-18] MEDS: PRAVACHOL PO SCH (21:09)
[2019-12-18] MEDS: NORVASC PO SCH (21:09)
[2019-12-18] MEDS: ASPIRIN EC PO SCH (21:29)
[2019-12-19] MEDS: LASIX IVP SCH (05:31)
[2019-12-19] MEDS: VENTOLIN HFA (PER PUFF-WITH SPACER) IH SCH ×3 (06:58→20:14)
[2019-12-19] MEDS ORDERED: ASPIRIN EC PO SCH (08:30)
[2019-12-19] MEDS: LEVAQUIN 500 MG/100 ML D5W 500 MG/100 ML BAG IV SCH (08:43)
[2019-12-19] MEDS: SOLU-MEDROL 125 MG IVP SCH ×2 (08:47→20:35)
[2019-12-19] MEDS: PLAVIX PO SCH (08:47)
[2019-12-19] MEDS: K-DUR PO SCH ×2 (08:47→17:26)
[2019-12-19] MEDS: NORVASC PO SCH ×2 (08:50→20:35)
--- NOTE | 2019-12-19 09:44 | PCM.PROG ---
Attending Provider: ATTENDING PROVIDER: Dr. TITO MONIQUE This patient is seen with Estrella Noland, Nurse Practitioner. DATE OF SERVICE: 12/19/19 SUBJECTIVE: This 69 year old /WHITE F was hospitalized 12/18/19. The patient is resting comfortably. She has had significant urine output over 2L in less than 24 hours. Leg edema improved . Abdominal wall edema slightly improved. She has yellow productive sputum. Feels less short of breath. Covid test pending. REVIEW OF SYSTEMS: CONSTITUTIONAL: No night sweats. No fatigue, malaise, lethargy. No fever or chills. HEENT: Eyes: No visual changes. No eye pain. No eye discharge. ENT: No runny nose. No epistaxis. No sinus pain. No odynophagia. No congestion. RESPIRATORY: Cough and congestion. No hemoptysis. Shortness of breath. CARDIOVASCULAR: No angina symptoms. No CHF symptoms. No atypical chest pain for CAD. No palpitations. No orthopnea.. GASTROINTESTINAL: No abdominal pain. No nausea or vomiting. No diarrhea or con stipation. No hematemesis. No hematochezia. GENITOURINARY: No urgency. No frequency. No dysuria. No hematuria. No obstructive symptoms. No discharge. No pain. No significant abnormal bleeding. MUSCULOSKELETAL: Leg edema. No musculoskeletal pain; no joint swelling. NEUROLOGICAL: Awake, alert, oriented to time, place and person. No headache. No neck pain. No syncope. No seizures. No dizziness. PSYCHIATRIC: Not anxious. No depression. No suicidal thoughts. No homicidal thoughts. SKIN: No rash. No lesions. No wounds. ENDOCRINE: No unexplained weight loss. No weight gain. HEMATOLOGIC/LYMPHATIC: No anemia. No purpura. No petechiae. No prolonged or excessive bleeding. No palpable lymph nodes. PHYSICAL EXAMINATION: GENERAL: The patient is awake, alert and oriented, lying/sitting in bed in no distress. VITAL SIGNS: Temperature 97.6 F, Pulse 76, Respiratory Rate 20, BP 136/78, Pulse Ox 92% HEENT: Head normocephalic, atraumatic. Eyes: Extraocular muscles are intact. Pupils are equal, round and reactive to light and accommodation. Ears: No lesions. Nose appeared normal. Throat: No exudate or erythema. NECK: Supple. No JVD, no carotid bruit. No lymphadenopathy or thyromegaly. LUNGS: Diminished breath sounds with bilateral expiratory wheeze. Percussion note normal. Chest symmetrical. HEART: S1, S2, no S3. No murmurs. No cyanosis or clubbing. No ascites. Pulses: Dorsalis pedis and posterior tibial pulses +1 to +2 both sides. ABDOMEN: Trace abdominal wall edema. Soft. Non-tender. Bowel sounds active. No CVA tenderness. No mass felt. EXTREMITIES: Trace leg edema. Full range of motion of all extremities, equal. NEUROLOGIC: No focal deficit. Cranial nerves II through XII are grossly intact. No headache, no double vision or headache. SKIN: Not dry. Intact. Turgor-normal. LYMPHATIC: No palpable lymph nodes/no lymphedema. MUSCULOSKELETAL: Normal joints with no swelling. Muscle tone is normal. LAB REVIEW: 12/19/19 05:20 12/19/19 05:20 12/19/19 05:20: Sodium 139.2, Potassium 4.25, Chloride 106.3, Carbon Dioxide 23.0, Anion Gap 14.15, BUN 23.9 H, Creatinine 0.89, Estimated GFR (MDRD) 63.00, BUN/Creatinine Ratio 26.85, Glucose 156.9 H, Calcium 9.35, Total Bilirubin 0.68, AST 43.0 H, ALT 26.8, Alkaline Phosphatase 131.5 D, Total Protein 7.96, Albumin 4.47, Globulin 3.49, Albumin/Globulin Ratio 1.28 12/19/19 05:20: WBC 10.45 H, RBC 4.29, Hgb 13.4, Hct 41.0, MCV 95.6, MCH 31.2 H, MCHC 32.7, RDW Coeff of Nazario 13.4, Plt Count 162, Immature Gran % (Auto) 0.8, Neut % (Auto) 87.4 H, Lymph % (Auto) 10.6, [place] % (Auto) 1.1, Eos % (Auto) 0.0, Baso % (Auto) 0.1, Neut # (Auto) 9.1 H, Lymph # (Auto) 1.1, [place] # (Auto) 0.1 L, Eos # (Auto) 0.0, Baso # (Auto) 0.0, Immature Gran # (Auto) 0.1 12/18/19 20:48: Total Creatine Kinase 127.8, CK-MB (CK-2) 2.200, CK-MB (CK-2) % 1.7200, Troponin I < 0.012 12/18/19 14:28: Urine Color Yellow, Urine Clarity Clear, Urine pH 6.5, Ur Specific [place] 1.020, Urine Protein Negative, Urine Glucose (UA) Negative, Urine Ketones Negative, Urine Blood Trace-intact H, Urine Nitrite Negative, Urine Bilirubin Negative, Urine Urobilinogen 0.2, Ur Leukocyte Esterase Negative, Urine Microscopic RBC 0-2, Ur Squamous Epith Cells Not present 12/18/19 12:53: Thyroxine (T4) 10.1 12/18/19 12:53: SARS-CoV-2 RNA (RT-PCR) 12/18/19 12:53: Sodium 138.0, Potassium 4.12, Chloride 107.0, Carbon Dioxide 24.6, Anion Gap 10.52, BUN 12.7, Creatinine 0.75, Estimated GFR (MDRD) 76.00, BUN/Creatinine Ratio 16.93, Glucose 117.0 H, Calcium 9.42, Total Bilirubin 0.87, AST 40.7 H, ALT 25.9, Alkaline Phosphatase 168.3 H, Total Creatine Kinase 145.2 H, CK-MB (CK-2) 2.290, CK-MB (CK-2) % 1.5700, Troponin I < 0.012, NT-Pro-B Natriuret Pep 137.000 H, Total Protein 7.68, Albumin 4.33, Globulin 3.35, Albumin/Globulin Ratio 1.29, TSH 0.667 12/18/19 12:53: WBC 7.69, RBC 4.25, Hgb 13.3, Hct 40.9, MCV 96.2, MCH 31.3 H, MCHC 32.5, RDW Coeff of Nazario 13.6, Plt Count 134 L, Immature Gran % (Auto) 0.5, Neut % (Auto) 53.6, Lymph % (Auto) 26.4, [place] % (Auto) 8.8, Eos % (Auto) 9.9 H, Baso % (Auto) 0.8, Neut # (Auto) 4.1, Lymph # (Auto) 2.0, [place] # (Auto) 0.7, Eos # (Auto) 0.8 H, Baso # (Auto) 0.1, Immature Gran # (Auto) 0.0 12/18/19 12:34: Puncture Site R rad, O2 Saturation 94.0 L, ABG pH 7.402, ABG pCO2 35.1, ABG pO2 70.0 L, ABG HCO3 21.8 L, ABG Total CO2 23, ABG Base Excess -3 L, Hari Test +, O2 Delivery Device Ra, FiO2 % 21.0 ASSESSMENT: Please see below. 1. Shortness of breath. 2. Right upper lobe pneumonia. 3. Leg edema improved. PLAN: 1. Continue IV antibiotics. 2. Continue Solu-Medrol. 3. Lasix 40 mg p.o. tomorrow. Plan and coordination of the patient's care discussed in the presence of Nurse Consultant and nurse. CONDITION: Stable SCRIBED BY: AME CLARK Ross Lift Operator scribed while in presence of service performed by Dr. Monique/Estrella Noland APRN on 12/19/19 ([id number])
[2019-12-19] MEDS: NORCO 5-325 PO PRN ×2 (12:16→20:35)
--- NOTE | 2019-12-19 13:34 | HP ---
DATE OF SERVICE: 12/18/19 HISTORY OF PRESENT ILLNESS: 69-year-old female with complaint of worsening shortness of breath, had to stop on way in office. Coughing with yellow sputum. Leg swelling- no improvement with Dyazide, gained weight. No fever. PAST MEDICAL HISTORY: Bilateral renal cyst per CT Pedal edema Insomnia Aortic occlusive disease History of osteopenia PAD with stent SOA Anemia B12 deficiency Dyslipidemia CAD 2004, Dr. Long Hypokalemia Anxiety History of DVT PAST SURGICAL HISTORY: Left TKR, Dr. Adriano Mcqueen Fracture left femur repair 09/13-10/14 Left TKR 08/07-04/14 Dr. Adriano Mcqueen Left knee with TKR infection Vaginal sling Hysterectomy REVIEW OF SYSTEMS: CONSTITUTIONAL: Fatigue. No fever. HEENT: Sinus drainage. No sore throat. RESPIRATORY: Cough. No hemoptysis. CARDIOVASCULAR: Shortness of breath. No atypical chest pain for coronary artery disease. No angina, CHF symptoms, palpitations. GASTROINTESTINAL: No melena or abdominal pain. No GERD. GENITOURINARY: No hematuria, no polyuria. KNITTER WIRE MESH: No blackout, no dizziness, no headache, no double vision. Gait: Cane. MUSCULOSKELETAL: Osteoarthritis pain. ENDOCRINE: No weight loss, no weight gain. SKIN: Not dry, no rash. PSYCHIATRIC: Not anxious, no depression, no suicidal thoughts, no homicidal thoughts. SOCIAL HISTORY: Smoking - quit. . No alcohol use. MEDICATIONS: Ativan 1 mg h.s. [place] 10/325 t.i.d. Dyazide 37.5 2-3 weekly Pro-Air q.i.d. K-Tab 20 mEq b.i.d. Norvasc 5 mg b.i.d. Albuterol for nebs Pravachol 40 mg one daily Plavix 75 mg one daily [place] 5/325 mg b.i.d. p.r.n. ALLERGIES: FLEXERIL (RESTLESS), MORPHINE, COZAAR, PERCODAN, PENICILLIN, CODEINE, AMPLICILLIN, LEXAPRO PHYSICAL EXAMINATION: V/S: Pulse 76, BP 142/70, temperature 97.9, 02 sat 94%, weight 148.2. BMI 30.4. Height 4'10 1/2" GENERAL APPEARANCE: Oriented times three. HEENT: Yellow sputum. NECK: No JVP, no bruits. RESPIRATORY: Decreased breath sounds. Bilateral expiratory/inspiratory wheeze. CARDIOVASCULAR: S1, S2, no S3, no murmur. No cyanosis, clubbing. No ascites. GI/ABDOMEN: No tenderness. Bowel sounds are active. EXTREMITIES: 2+ left lower extremity edema, 1+ right lower extremity edema. Pulses +1, equal. KNITTER WIRE MESH: Deep tendon reflexes, sensory, motor and gait all normal. RECTAL/PELVIC: Colonoscopy 2013 refused repeat. Pelvic: Hysterectomy. Mammogram 2014 refused. ASSESSMENT: 1. Shortness of breath. 2. Acute bronchitis. 3. Leg edema. 4. Left TKR redness 5. Bilateral renal cyst per CT 6. Pedal edema 7. Insomnia 8. Fracture left femur repair 09/13-10/14 9. Aortic occlusive disease 10. Left TKR 08/07-04/14 Dr. Sebastián Mcqueen 11. History of osteopenia 12. Left knee with TKR infection 13. PAD with stent 14. SOA 15. Anemia 16. B12 deficiency 17. Vaginal sling 18. Dyslipidemia 19. CAD 2004, Dr. Long 20. Hypokalemia 21. Anxiety 22. History of DVT PLAN: 1. Admit *PUI 2. Continue all medications - No Dyazide 3. Routine telemetry orders 4. CBC, CMP, T4 and TSH now and daily 5. Chest x-ray 6. ABG on room air 7. Pro-BNP times one 8. 02 @ 1-2L NC 9. Covid 19 test STAT 10. Levaquin 500 IV daily 11. Lasix 40 mg IV today and tomorrow 12. 2D echocardiogram 13. Solu-Medrol 125 mg IV q.12h 14. Daily weight 15. Albuterol neb t.i.d. HENRI two puffs TIME SPENT: More than 70 minutes. MTDD
--- NOTE | 2019-12-19 13:41 | PN ---
DATE OF SERVICE: 12/19/19 SUBJECTIVE: The patient is in the Special Care Unit #1 is doing well. Her leg edema has practically subsided. Abdominal edema also subsided. She is breathing a lot better. Covid is still pending. The patient was seen and examined with the nurse practitioner. Will continue all the medications. The patient's problem is that she is noncompliant of lifestyle, food intake, et cetera. She is strongly advised to cut down on salt. Advised to elevate the legs. Education carried out. Condition is stable. We may end up doing an echo to evaluate LV function. TIME SPENT: More than 30 minutes. Plan and coordination of the patient's care discussed in the presence of nurse. TREY
[2019-12-19] MEDS ORDERED: DECADRON 4 MG/ML SDV IM STA (17:59)
[2019-12-19] MEDS: VENTOLIN HFA (PER PUFF-WITH SPACER) IH PRN ×2 (18:12→23:30)
[2019-12-19] MEDS: ATIVAN PO PRN (20:35)
[2019-12-19] MEDS: ASPIRIN EC PO SCH (20:35)
[2019-12-19] MEDS: PRAVACHOL PO SCH (20:35)
[2019-12-20] MEDS: VENTOLIN HFA (PER PUFF-WITH SPACER) IH SCH ×3 (04:32→18:55)
[2019-12-20 05:57] LABS: HEMATOCRIT 38.1 % (37.0-47.0)
[2019-12-20] MEDS ORDERED: LASIX TAB PO ONE (06:30)
[2019-12-20] MEDS: LEVAQUIN 500 MG/100 ML D5W 500 MG/100 ML BAG IV SCH (08:34)
[2019-12-20] MEDS: SOLU-MEDROL 125 MG IVP SCH (08:34)
[2019-12-20] MEDS: PLAVIX PO SCH (08:34)
[2019-12-20] MEDS: NORVASC PO SCH ×2 (08:34→21:02)
[2019-12-20] MEDS: K-DUR PO SCH ×2 (08:34→17:05)
[2019-12-20] MEDS: VENTOLIN HFA (PER PUFF-WITH SPACER) IH PRN ×2 (10:02→22:40)
--- NOTE | 2019-12-20 13:29 | PCM.PROG ---
Attending Provider: ATTENDING PROVIDER: Dr. TITO MONIQUE DATE OF SERVICE: 12/20/19 SUBJECTIVE: This 69 year old /WHITE F was hospitalized 12/18/19 with generalized edema, acute bronchitis with early pneumonia, leg edema, abdominal wall edema. The patient's condition has improved remarkably. Covid is still pending. REVIEW OF SYSTEMS: CONSTITUTIONAL: No night sweats. No fatigue, malaise, lethargy. No fever or chills. HEENT: Eyes: No visual changes. No eye pain. No eye discharge. ENT: No runny nose. No epistaxis. No sinus pain. No odynophagia. No congestion. RESPIRATORY: No cough, no congestion. No hemoptysis. No shortness of breath. CARDIOVASCULAR: No angina symptoms. No CHF symptoms. No atypical chest pain for CAD. No palpitations. No orthopnea.. GASTROINTESTINAL: No abdominal pain. No nausea or vomiting. No diarrhea or constipation. No hematemesis. No hematochezia. GENITOURINARY: No urgency. No frequency. No dysuria. No hematuria. No obstructive symptoms. No discharge. No pain. No significant abnormal bleeding. MUSCULOSKELETAL: No musculoskeletal pain; no joint swelling. NEUROLOGICAL: Awake, alert, oriented to time, place and person. No headache. No neck pain. No syncope. No seizures. No dizziness. PSYCHIATRIC: Not anxious. No depression. No suicidal thoughts. No homicidal thoughts. SKIN: No rash. No lesions. No wounds. ENDOCRINE: No unexplained weight loss. No weight gain. HEMATOLOGIC/LYMPHATIC: No anemia. No purpura. No petechiae. No prolonged or excessive bleeding. No palpable lymph nodes. PHYSICAL EXAMINATION: GENERAL: The patient is awake, alert and oriented, lying/sitting in bed in no distress. VITAL SIGNS: Temperature 98.3 F, Pulse 63, Respiratory Rate 18, BP 129/68, Pulse Ox 96% HEENT: Head normocephalic, atraumatic. Eyes: Extraocular muscles are intact. Pupils are equal, round and reactive to light and accommodation. Ears: No lesions. Nose appeared normal. Throat: No exudate or erythema. NECK: Supple. No JVD, no carotid bruit. No lymphadenopathy or thyromegaly. LUNGS: Decreased breath sounds. Clear to auscultation. Percussion note normal. Chest symmetrical. HEART: S1, S2, no S3. No murmurs. No cyanosis or clubbing. No ascites. Pulses: Dorsalis pedis and posterior tibial pulses +1 to +2 both sides. ABDOMEN: No abdominal wall swelling. Soft. Non-tender. Bowel sounds active. No CVA tenderness. No mass felt. EXTREMITIES: Practically no pedal wall edema. Full range of motion of all extremities, equal. NEUROLOGIC: No focal deficit. Cranial nerves II through XII are grossly intact. No headache, no double vision or headache. SKIN: Warm and dry. Intact. Turgor-normal. LYMPHATIC: No palpable lymph nodes/no lymphedema. MUSCULOSKELETAL: Normal joints with no swelling. Muscle tone is normal. LAB REVIEW: 12/20/19 05:35 12/20/19 05:35 12/20/19 05:35: Sodium 138.2, Potassium 4.53, Chloride 104.6, Carbon Dioxide 27.3, Anion Gap 10.83, BUN 29.4 H, Creatinine 0.88, Estimated GFR (MDRD) 63.00, BUN/Creatinine Ratio 33.40, Glucose 148.3 H, Calcium 9.37, Total Bilirubin 0.52, AST 30.7, ALT 22.2, Alkaline Phosphatase 98.1 D, Total Protein 7.01, Albumin 3.90, Globulin 3.11, Albumin/Globulin Ratio 1.25 12/20/19 05:35: WBC 15.90 H D, RBC 3.94 L, Hgb 12.4, Hct 38.1, MCV 96.7, MCH 31.5 H, MCHC 32.5, RDW Coeff of Nazario 13.5, Plt Count 158, Immature Gran % (Auto) 0.9, Neut % (Auto) 89.7 H, Lymph % (Auto) 6.8 L, [place] % (Auto) 2.5, Eos % (Auto) 0.0, Baso % (Auto) 0.1, Neut # (Auto) 14.3 H, Lymph # (Auto) 1.1, [place] # (Auto) 0.4, Eos # (Auto) 0.0, Baso # (Auto) 0.0, Immature Gran # (Auto) 0.2 ASSESSMENT: Please see below. 1. Pneumonia seems to be resolving with no symptoms. 2. The patient's blood pressure 137/78. The patient has history of CAD and hypertension with a lot of comorbidities. Will evaluate LV function. 3. Covid is still pending. PLAN: 1. Will continue Levaquin. 2. Generalized swelling subsided. 3. Echocardiogram pending. 4. D/C Solu-Medrol. 5. Prednisone 10 mg b.i.d. 6. Lasix 40 mg p.o. daily. Plan and coordination of the patient's care discussed in the presence of Merchandise Complaint Adjuster and nurse. CONDITION: STABLE SCRIBED BY: AME CLARK Paster Supervisor scribed while in presence of service performed by Dr. TITO MONIQUE on 12/20/19 ([id number])
[2019-12-20] MEDS: NORCO 5-325 PO PRN ×2 (15:25→21:02)
[2019-12-20] MEDS: PREDNISONE PO SCH (17:05)
[2019-12-20] MEDS: ASPIRIN EC PO SCH (21:01)
[2019-12-20] MEDS: ATIVAN PO PRN (21:02)
[2019-12-20] MEDS: PRAVACHOL PO SCH (21:03)
[2019-12-21] MEDS: VENTOLIN HFA (PER PUFF-WITH SPACER) IH SCH (04:50)
[2019-12-21 05:22] LABS: HEMATOCRIT 37.7 % (37.0-47.0)
[2019-12-21 05:30] VITALS: BP 125/70; TEMP 97.8
[2019-12-21] MEDS ORDERED: LASIX TAB PO SCH (06:30)
[2019-12-21] MEDS: VENTOLIN HFA (PER PUFF-WITH SPACER) IH PRN (07:59)
[2019-12-21] MEDS: LEVAQUIN 500 MG/100 ML D5W 500 MG/100 ML BAG IV SCH (08:28)
[2019-12-21] MEDS: K-DUR PO SCH (08:28)
[2019-12-21] MEDS: PLAVIX PO SCH (08:28)
[2019-12-21] MEDS: NORVASC PO SCH (08:28)
[2019-12-21] MEDS: PREDNISONE PO SCH (08:28)
--- NOTE | 2019-12-21 08:58 | PCM.PROG ---
Attending Provider: ATTENDING PROVIDER: Dr. TITO MONIQUE This patient is seen with Estrella Noland, Nurse Practitioner. DATE OF SERVICE: 12/21/19 SUBJECTIVE: This 69 year old /WHITE F was hospitalized 12/18/19. The patient is resting comfortably. Her shortness of breath has improved. Leg edema has resolved. She still has nonproductive cough. No fever. She is able to talk without shortness of breath but still has shortness of breath with exertion. REVIEW OF SYSTEMS: CONSTITUTIONAL: No night sweats. No fatigue, malaise, lethargy. No fever or chills. HEENT: Eyes: No visual changes. No eye pain. No eye discharge. ENT: No runny nose. No epistaxis. No sinus pain. No odynophagia. No congestion. RESPIRATORY: Cough, no congestion. No hemoptysis. Shortness of breath with exertion. CARDIOVASCULAR: No angina symptoms. No CHF symptoms. No atypical chest pain for CAD. No palpitations. No orthopnea.. GASTROINTESTINAL: No abdominal pain. No nausea or vomiting. No diarrhea or constipation. No hematemesis. No hematochezia. GENITOURINARY: No urgency. No frequency. No dysuria. No hematuria. No obstructive symptoms. No discharge. No pain. No significant abnormal bleeding. MUSCULOSKELETAL: No musculoskeletal pain; no joint swelling. NEUROLOGICAL: Awake, alert, oriented to time, place and person. No headache. No neck pain. No syncope. No seizures. No dizziness. PSYCHIATRIC: Not anxious. No depression. No suicidal thoughts. No homicidal thoughts. SKIN: No rash. No lesions. No wounds. ENDOCRINE: No unexplained weight loss. No weight gain. HEMATOLOGIC/LYMPHATIC: No anemia. No purpura. No petechiae. No prolonged or excessive bleeding. No palpable lymph nodes. PHYSICAL EXAMINATION: GENERAL: The patient is awake, alert and oriented, lying in bed in no distress. VITAL SIGNS: Temperature 97.8 F, Pulse 66, Respiratory Rate 20, BP 125/70, Pulse Ox 97% HEENT: Head normocephalic, atraumatic. Eyes: Extraocular muscles are intact. Pupils are equal, round and reactive to light and accommodation. Ears: No lesions. Nose appeared normal. Throat: No exudate or erythema. NECK: Supple. No JVD, no carotid bruit. No lymphadenopathy or thyromegaly. LUNGS: Diminished breath sounds. Clear to auscultation. Percussion note normal. Chest symmetrical. HEART: S1, S2, no S3. No murmurs. No cyanosis or clubbing. No ascites. Pulses: Dorsalis pedis and posterior tibial pulses +1 to +2 both sides. ABDOMEN: Soft. Non-tender. Bowel sounds active. No CVA tenderness. No mass felt. EXTREMITIES: No edema. Full range of motion of all extremities, equal. NEUROLOGIC: No focal deficit. Cranial nerves II through XII are grossly intact. No headache, no double vision or headache. SKIN: Not dry. Intact. Turgor-normal. LYMPHATIC: No palpable lymph nodes/no lymphedema. MUSCULOSKELETAL: Normal joints with no swelling. Muscle tone is normal. LAB REVIEW: 12/21/19 05:15 12/21/19 05:15 12/21/19 05:15: Sodium 137.9, Potassium 4.33, Chloride 105.4, Carbon Dioxide 27.9, Anion Gap 8.93, BUN 29.1 H, Creatinine 0.79, Estimated GFR (MDRD) 72.00, BUN/Creatinine Ratio 36.83, Glucose 143.6 H, Calcium 8.95, Total Bilirubin 0.47, AST 30.8, ALT 23.1, Alkaline Phosphatase 95.8, Total Protein 6.58, Albumin 3.76, Globulin 2.82, Albumin/Globulin Ratio 1.33 12/21/19 05:15: WBC 13.58 H, RBC 3.89 L, Hgb 12.5, Hct 37.7, MCV 96.9, MCH 32.1 H, MCHC 33.2, RDW Coeff of Nazario 13.5, Plt Count 139 L, Immature Gran % (Auto) 0.7, Neut % (Auto) 84.9 H, Lymph % (Auto) 9.1 L, [place] % (Auto) 5.2, Eos % (Auto) 0.0, Baso % (Auto) 0.1, Neut # (Auto) 11.6 H, Lymph # (Auto) 1.2, [place] # (Auto) 0.7, Eos # (Auto) 0.0, Baso # (Auto) 0.0, Immature Gran # (Auto) 0.1 ASSESSMENT: Please see below. 1. Acute right upper lobe pneumonia, improved 2. Shortness of breath, improved 3. Leg edema, improved 4. COPD PLAN: 1. Three step oxygen test 2. Will send home on Levaquin 500mg daily for 7 days 3. Prednisone 10mg BID for 5 days 4. Albuterol inhaler one to two puffs Q4 hours 5. Will be given sample of Symbicort inhaler to use as well 6. Discontinue Dyazide 7. Continue Lasix Daily as well as home medications 8. Dr. Monique to do echo prior to discharge . Plan and coordination of the patient's care discussed in the presence of Global Implementation Manager and nurse. SCRIBED BY: Erna SAUCEDAist scribed while in presence of service performed by Dr. Monique/Estrella Noland APRN on 12/21/19 ([id number])
[2019-12-21] MEDS: NORCO 5-325 PO PRN (12:29)
--- NOTE | 2019-12-22 11:18 | ECHO2D ---
Date of Exam: 12/21/2019 Ordering Physician: DR. TITO MONIQUE Room #: 116 Reason for Echo: SOB, COUGH, CAD, HTN, PAD M-Mode Normal Adult Results LV Dimensions Normal Adult Results AoV Opening excursions >1.6 >1.6 LVEDD-base- 3.5-5.8 4.5 Ao root dimensions 2.0-3.7 3.0 LVESD-base- 3.1-4.6 L. Atrium dimensions 1.9-3.8 3.3 Post. Wall thickness 0.8-1.1 1.1 IV septum (thickness) 0.7-1.2 1.0 Post. Wall excursion 0.72-1.3 NORMAL Septal motion NORMAL Systolic motion R. Ventricular cavity 1.5-2.0 NORMAL LVEF 60% 62% Paradoxical septal wall motion NORMAL 2-D : 2-D M Mode Echocardiogram was performed using apical four chamber and left parasternal long and short axis views. Mitral, tricuspid and aortic valves appear to be normal. Contractility of the left ventricle seems to be normal, so is the cavity size. Left atrial cavity size and aortic root appear to be normal. There is no pericardial effusion. There is no thrombus noted in the left ventricle or left atrial cavity. No mitral valve prolapse noted. M-MODE: MV: NORMAL AV: NORMAL TV: NORMAL PV: CHAMBER SIZE: NORMAL WALL MOTION: NORMAL PERICARDIUM: NORMAL INTERPRETATION: 1. NORMAL 2 "D" "M" MODE ECHO 2. [] 3. [] 4. [] MTDD
--- NOTE | 2019-12-22 14:00 | PN ---
DATE OF SERVICE: 12/21/19 SUBJECTIVE: Ms. Fang was seen and examined with the nurse practitioner. The patient's condition is stable. Her pneumonia seems to be resolving with no cough, no congestion, no symptoms of pneumonia. The leg edema is practically resolved. Her echo showed normal LV contractility, practically unchanged from before. Normal LV size noted. TIME SPENT: More than 30 minutes. Plan and coordination of the patient's care discussed in the presence of nurse. TREY
--- NOTE | 2019-12-27 11:17 | DS ---
DATE OF SERVICE: 12/21/19 FINAL DIAGNOSIS: 1. PNEUMONIA, RIGHT UPPER LOBE 2. SHORTNESS OF BREATH, IMPROVING 3. LEG EDEMA, RESOLVED 4. COPD 5. HISTORY OF CAD S/P STENT APPLICATION, 2009 AND 2013 (DR. GALLARDO) 6. HYPERTENSION 7. COPD, MILD PER PFT 2018 8. INSOMNIA 9. AORTIC OCCLUSIVE DISEASE 10. OSTEOPENIA 11. PERIPHERAL ARTERY DISEASE WITH STENT 12. ANEMIA 13. B12 DEFICIENCY 14. DYSLIPIDEMIA 15. HEPATIC STEATOSIS 16. RENAL CYST, LEFT 17. ANXIETY 18. DVT, 2013 19. TKR, LEFT KNEE 07/2009 AND 03/2018 20. OSTEOMYELITIS, LEFT KNEE, 2017 21. LEFT FEMUR REPAIR 2018 22. VAGINAL SLING LAST VITAL SIGNS: Temperature Pulse Respirations B/P Pulse Ox 97.8 66 20 125/70 97 12/21/19 05:27 12/21/19 05:27 12/21/19 05:27 12/21/19 05:27 12/21/19 09:11 DISCHARGE INSTRUCTIONS: 1. An appointment is scheduled with Dr. Mcqueen/Estrella Noland APRN/Tommy Mitchell APRN on December 26 at 10:15 a.m. 2. Elevate legs when at rest. 3. Rest when tired. 4. No camping at this time (avoid extreme heat and humidity). 5. No outside activity until next week. MEDICATIONS AT DISCHARGE: Hydrocodone Bitart/Acetaminophen ([place] 5-325) one tab p.o. b.i.d. p.r.n. Albuterol two puff IH q.4hr p.r.n. shortness of air/wheezing Amlodipine 5 mg p.o. b.i.d. HENRI Clopidogrel 75 mg p.o. daily EHNRI Furosemide 40 mg p.o.q.d a.c. HENRI Levaquin 500 mg p.o. daily for 7 days Lorazepam 1 mg p.o. bedtime p.r.n. Potassium Chloride 20 mEq p.o. b.i.d. with meal HENRI Pravastatin 40 mg p.o. bedtime HENRI Prednisone 10 mg p.o. b.i.d. with meal HENRI for 5 days Symbicort 80 mcg two puffs b.i.d. NEW PRESCRIPTIONS: Levaquin 500 mg daily for 7 days Prednisone 10 mg b.i.d. with food for 5 days Lasix 40 mg daily K-Dur 20 mEq b.i.d. (refill) Ventolin HFA two puffs every four hours p.r.n. wheezing/shortness of air Symbicort 80 mcg IH two puffs b.i.d. (sample from MD office) All prescriptions except for Symbicort were called to [facility] at patient request. DISCONTINUED MEDICATIONS: Dyazide DIET INSTRUCTIONS: Regular as tolerated. ACTIVITY: Resume as tolerated. SMOKING: Non Applicable DISEASE SPECIFIC EDUCATION: Activity New medications Appointment Use of inhalers HOSPITAL COURSE: This 69-year-old white female who presented to the office, she was increasingly short of breath. She has been coughing and wheezing for about the past month. She took a Z-pack and Prednisone as an outpatient which showed no improvement. She was having worsening leg edema and edema of her abdomen. She had Dyazide at home she had been taking with no relief, did not resolve her leg edema. Her oxygen saturation was 94% in the office however she was visibly short of breath. She had to stop on her way into the office and take a rest. She was unable to walk in here without stopping due to shortness of breath. We admitted her [facility] for such a period of time. We did test her for Covid-[address] of the chest did show that she had some right upper lobe pneumonia. She does have a history of COPD. She has lost about 5 lbs after being admitted. We did IV Lasix for three days at 40 mg. Her leg edema has since resolved. Her abdomen is much softer. Dr. Mcqueen has performed an echo prior to discharge today. She does have a history of leg edema having to have hospitalization. We also placed her on Levaquin 500 mg IV daily due to the pneumonia and bronchitis. Her cough has improved. It is no longer productive. We have been doing Albuterol inhaler q.4hrs. She did initially require some oxygen howver has just past her three-step 02 test. I am going to discontinue her Dyazide which she was on previously as an outpatient and will send her home with Lasix 40 mg daily along with potassium 20 mEq b.i.d. If her leg edema straightens out then we may make the Lasix on a p.r.n. basis but will just have to see. She will also be discharged home on Levaquin 500 mg p.o. daily for the next 7 days along with Prednisone 10 mg daily b.i.d. I have instructed her to stay indoors. They do like to go camping. She is to stay indoors, stay out of the heat, keep her legs elevated. She has been eating well, afebrile. Blood pressure is better. Again, she has lost about 5 lbs since being admitted. All of her labs look good. She was initially on IV steroids. Those were discontinued yesterday. She has been tolerating this well. We will send her home. She can now carry on a conversation with no oxygen. She is not short of breath. She has been up and about to the bathroom with significant improvement from admission. Will discharge her in stable condition and will see her next week in the office. TIME SPENT: More than 60 minutes. TREY
== END 2019-12-21 13:11 | disposition home or self-care (01) | DRG 951 ==
LOC: SCU 12:21 → MEDSURG B 12-20 20:54
PROVIDERS: ADMIT Internal Medicine; ATTEND Internal Medicine

== ENCOUNTER 2023-09-11 05:01 | Inpatient (IN) ==
[2023-09-11] MEDS: DUONEB NEB STA ×3 (05:15→06:31)
--- NOTE | 2023-09-11 05:21 | ED.PDOC ---
General <BELL LAYTON MD - Last Filed: 09/11/23 06:39> ED Provider: Dr. BELL LAYTON MD Chief Complaint: Shortness of Air Stated Complaint: MD patient with a history of COPD, asthma, hypertension, complains of increasing shortness of breath for the past 4 days. Patient was evaluated emergency room on date 09/07/2023 treated for asthma but was unaware that there is a prescription for prednisone 40 mg daily for 5 days. Patient complains having cough, exertional dyspnea, denies fever, chills, arthralgia. Patient also denies chest pain, diaphoresis, palpitations. Time Seen by Provider: 09/11/23 05:20 Mode of Arrival: Walk-In Information Source: Patient Primary Care Provider: TITO MONIQUE MD Nursing and Triage Documentation Reviewed and Agree: Yes What is Opioid Naive?: *Opioid Naive implies the patient is not already taking opioids or not chronically receiving opioids on a daily basis. *PRN dosing is not "usually" associated with tolerance. *Patients are at higher risk of over-sedation and aspiration. What is Opioid Tolerant?: *Opioid Tolerance implies less than the expected response to an opioid. *Acquired tolerance is defined by the patient taking 60mg of oral morphine daily (or equianalgesic dose of another opioid) for 1 week or more. *Often associated with chronic pain. *May take more than usual dose to achieve desired pain control. Review of Systems <BELL LAYTON MD - Last Filed: 09/11/23 06:39> Review Of Systems Constitutional: Reports Malaise and Weakness Eyes: Reports No symptoms Ears, Nose, Mouth, Throat: Reports No symptoms Respiratory: Reports Cough and Shortness of Breath Cardiac: Reports No symptoms GI: Reports No symptoms : Reports No symptoms Musculoskeletal: Reports No symptoms Neurological: Reports No symptoms Endocrine: Reports No symptoms Hematologic/Lymphatic: Reports No symptoms All Other Systems: Reviewed and Negative PFSH <BELL LAYTON MD - Last Filed: 09/11/23 06:39> Medical History Adult general medical exam Z00.00 - Encounter for general adult medical examination without abnormal findings (ICD-10) Upper respiratory infection J06.9 - Acute upper respiratory infection, unspecified (ICD-10) Infection of total left knee replacement T84.54XA - Infection and inflammatory reaction due to internal left knee prosthesis, initial encounter (ICD-10) Fracture of left femur repair 09/13 S72.92XA - Unspecified fracture of left femur, initial encounter for closed fracture (ICD-10) Family History FATHER Myocardial infarct Mother Cancer of pancreas Diabetes Social History (Updated 08/23/23 @ 09:24 by CARLOS MIMS) Smoking and tobacco status: Never smoker Smokeless tobacco user: other Alcohol intake: never Substance use type: does not use Special ciro needs: No Agree to transfusion: Yes Adopted: No Caregiver/support person: No Foster care: No Household members: spouse Housing: house Marital status: M Lives independently: Yes Daycare: no daycare service: No halfway: No Current occupational status: retired History of recent travel: No Do you think of yourself as: straight/heterosexual Current gender identity: female Seatbelt use: always Drives intoxicated or rides with 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 Water heater temperature set < 120 degrees: Yes Working smoke detector in home: Yes Fire extinguisher in home: Yes Carbon monoxide detector in home: Yes Surgical History History of total left knee replacement (TKR) Z96.652 - Presence of left artificial knee joint (ICD-10) S/P femoral-popliteal bypass surgery 10/11 Z95.828 - Presence of other vascular implants and grafts (ICD-10) History of cholecystectomy Z98.89 - Other specified postprocedural states (ICD-10) History of appendectomy Z98.89 - Other specified postprocedural states (ICD-10) History of hysterectomy Z90.710 - Acquired absence of both cervix and uterus (ICD-10) Female Reproductive History Menstrual Hx Hysterectomy: Yes Hx Tubal Ligation: No Physical Exam <BELL LAYTON MD - Last Filed: 09/11/23 06:39> Physical Exam Appearance: Reports Ill-appearing Ill-appearing: Moderate Pain Distress: None Eyes: Reports CECILIA and Conjunctiva clear Neck: Supple Respiratory: Reports Breath sounds diminished and Wheezes ( Diffuse inspiratory and expiratory wheezes. Diminished breath sounds at the bases. Slight labored breathing without retractions audible wheeze or stridor.) Cardiovascular: Reports RRR, Pulses normal, No rub and No murmur GI/: Reports Soft, Nontender, No masses and Bowel sounds normal Musculoskeletal: Reports Normal strength, ROM intact and Edema (Today prescription) Skin: Reports Warm and Dry Neurological: Reports Sensation intact, Motor intact, Reflexes intact, Cranial nerves intact, Alert and Oriented Psychiatric: Reports Affect appropriate and Mood appropriate Critical Care Note <BELL LAYTON MD - Last Filed: 09/11/23 06:39> Critical Care Note Total Critical Care Time (mins): 0 Course <BELL LAYTON MD - Last Filed: 09/11/23 06:39> Course 09/11/23 05:02 09/11/23 05:02 Orders, Labs, Meds: Lab Review 09/11/23 09/11/23 09/11/23 05:02 05:18 05:24 WBC 8.23 RBC 3.89 L Hgb 12.8 Hct 40.0 MCV 102.8 H MCH 32.9 H MCHC 32.0 RDW Coeff of Nazario 13.4 Plt Count 107 L Immature Gran % (Auto) 0.4 Neut % (Auto) 68.9 Lymph % (Auto) 16.4 [place] % (Auto) 8.6 Eos % (Auto) 5.2 Baso % (Auto) 0.5 Neut # (Auto) 5.7 Lymph # (Auto) 1.4 [place] # (Auto) 0.7 Eos # (Auto) 0.4 Baso # (Auto) 0.0 Immature Gran # (Auto) 0.0 Puncture Site Ra Base Excess -5.0 L O2 Saturation 88.3 L ABG pH 7.32 L ABG pCO2 41.0 ABG pO2 60.0 L ABG HCO3 21.1 ABG Total CO2 22.4 Hari Test Pos Hemoglobin 1.1 Oxyhemoglobin 88.6 L Carboxyhemoglobin 2.1 H Total Hemoglobin 13.1 O2 Delivery Device Ra FiO2 % 21.0 Sodium 139.0 Potassium 3.76 Chloride 112.8 H Carbon Dioxide 19.2 L Anion Gap 10.76 BUN 18.4 H Creatinine 0.82 Estimated GFR (MDRD) 68.00 BUN/Creatinine Ratio 22.43 Glucose 128.2 H Lactic Acid 1.42 Calcium 8.99 Total Bilirubin 1.07 AST 37.3 H ALT 21.5 Alkaline Phosphatase 160.0 H Troponin I < 0.012 Total Protein 7.47 Albumin 3.92 Globulin 3.55 Albumin/Globulin Ratio 1.10 D-Dimer 2621.13 H Influ A Molecular Assay Negative by naat Influ B Molecular Assay Negative by naat RSV Antigen Negative by naat SARS CoV-2 RNA Rapid MAHESH Negative Orders Category Date Time Status ABG DRAW REQUEST Stat CARDIO 09/11/23 05:15 Completed EKG-(ED ONLY) Stat CARDIO 09/11/23 05:15 Completed NEBULIZER TREATMENT Stat CARDIO 09/11/23 05:15 Completed NEBULIZER TREATMENT Stat CARDIO 09/11/23 06:19 Completed NPO REMINDER: IMAGING ONCE CARE 09/11/23 06:36 Active 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[employer]ORER APPLIED] .ONCE EMERGENCY 09/11/23 05:21 Active ABG COOX Stat LAB 09/11/23 05:18 Completed BLOOD CULTURE (ED ONLY) Stat LAB 09/11/23 07:03 Received CBC W/ AUTO DIFF Stat LAB 09/11/23 05:02 Completed CMP [COMPREHENSIVE METABOLIC PANEL] Stat LAB 09/11/23 05:02 Completed COVID [SARS COV-2 RNA RAPID MAHESH] Stat LAB 09/11/23 05:24 Completed D-DIMER Stat LAB 09/11/23 05:02 Completed FLU A & B MOLECULAR [FLU A/B MOLECULAR] Stat LAB 09/11/23 05:24 Completed LACTIC ACID Stat LAB 09/11/23 05:02 Completed RSV Stat LAB 09/11/23 05:24 Completed TROPONIN I Stat LAB 09/11/23 05:02 Completed Clonidine HCl [Catapres] Meds 09/11/23 05:30 Discontinued 0.1 mg PO ONCE ONE Ipratropium/Albuterol Neb [Duoneb] Meds 09/11/23 05:12 Discontinued 3 ml NEB ONCE STA Ipratropium/Albuterol Neb [Duoneb] Meds 09/11/23 05:15 Discontinued 3 ml NEB ONCE STA Ipratropium/Albuterol Neb [Duoneb] Meds 09/11/23 06:19 Discontinued 3 ml NEB ONCE STA Levofloxacin/D5w [Levaquin 500 mg/100 ml D5w] Meds 09/11/23 05:17 Discontinued 500 mg in 100 ml IV ONCE Methylprednisolone Sod Succ/Pf [Solu-Medrol 125 mg] Meds 09/11/23 05:35 Discontinued 125 mg IVP ONCE ONE CHEST, 1V AP ONLY Stat RADS 09/11/23 05:15 Completed CTA CHEST PE PROTOCOL Stat RADS 09/11/23 06:36 Completed Medications Discontinued Medications Generic Name Dose Route Start Last Admin Trade Name Mariusz PRN Reason Stop Dose Admin Albuterol/Ipratropium 3 ml 09/11/23 05:12 09/11/23 05:23 Ipratropium/Albuterol Vial.[facility] 09/11/23 05:13 3 ml ONCE STA Administration Albuterol/Ipratropium 3 ml 09/11/23 05:15 09/11/23 05:15 Ipratropium/Albuterol Vial.[facility] 09/11/23 05:16 3 ml ONCE STA Administration Albuterol/Ipratropium 3 ml 09/11/23 06:19 09/11/23 06:31 Ipratropium/Albuterol Vial.[facility] 09/11/23 06:20 3 ml ONCE STA Administration Clonidine 0.1 mg 09/11/23 05:30 09/11/23 05:45 Clonidine Hcl 0.1 Mg Tablet PO 09/11/23 05:31 0.1 mg ONCE ONE Administration Levofloxacin/Dextrose 500 mg in 100 mls @ 100 mls/hr 09/11/23 05:17 09/11/23 06:00 Levaquin 500 Mg/100 Ml D5w IV 09/11/23 06:16 100 mls/hr ONCE ONE Administration Methylprednisolone Sodium Succinate 125 mg 09/11/23 05:35 09/11/23 05:45 Methylprednisolone Sod Succ/Pf 125 Mg/2 Ml Vial IVP 09/11/23 05:36 125 mg ONCE ONE Administration Vital Signs: Temp Pulse Resp BP Pulse Ox 09/11/23 05:05 98.2 F 79 24 H 189/67 H 90 L <RIKKI CH, DO - Last Filed: 09/11/23 08:12> Course Orders, Labs, Meds: Lab Review 09/11/23 09/11/23 09/11/23 05:02 05:18 05:24 WBC 8.23 RBC 3.89 L Hgb 12.8 Hct 40.0 MCV 102.8 H MCH 32.9 H MCHC 32.0 RDW Coeff of Nazario 13.4 Plt Count 107 L Immature Gran % (Auto) 0.4 Neut % (Auto) 68.9 Lymph % (Auto) 16.4 [place] % (Auto) 8.6 Eos % (Auto) 5.2 Baso % (Auto) 0.5 Neut # (Auto) 5.7 Lymph # (Auto) 1.4 [place] # (Auto) 0.7 Eos # (Auto) 0.4 Baso # (Auto) 0.0 Immature Gran # (Auto) 0.0 Puncture Site Ra Base Excess -5.0 L O2 Saturation 88.3 L ABG pH 7.32 L ABG pCO2 41.0 ABG pO2 60.0 L ABG HCO3 21.1 ABG Total CO2 22.4 Hari Test Pos Hemoglobin 1.1 Oxyhemoglobin 88.6 L Carboxyhemoglobin 2.1 H Total Hemoglobin 13.1 O2 Delivery Device Ra FiO2 % 21.0 Sodium 139.0 Potassium 3.76 Chloride 112.8 H Carbon Dioxide 19.2 L Anion Gap 10.76 BUN 18.4 H Creatinine 0.82 Estimated GFR (MDRD) 68.00 BUN/Creatinine Ratio 22.43 Glucose 128.2 H Lactic Acid 1.42 Calcium 8.99 Total Bilirubin 1.07 AST 37.3 H ALT 21.5 Alkaline Phosphatase 160.0 H Troponin I < 0.012 Total Protein 7.47 Albumin 3.92 Globulin 3.55 Albumin/Globulin Ratio 1.10 D-Dimer 2621.13 H Influ A Molecular Assay Negative by naat Influ B Molecular Assay Negative by naat RSV Antigen Negative by naat SARS CoV-2 RNA Rapid MAHESH Negative Orders Category Date Time Status ABG DRAW REQUEST Stat CARDIO 09/11/23 05:15 Completed EKG-(ED ONLY) Stat CARDIO 09/11/23 05:15 Completed NEBULIZER TREATMENT Stat CARDIO 09/11/23 05:15 Completed NEBULIZER TREATMENT Stat CARDIO 09/11/23 06:19 Completed NPO REMINDER: IMAGING ONCE CARE 09/11/23 06:36 Active 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[employer]ORER APPLIED] .ONCE EMERGENCY 09/11/23 05:21 Active ABG COOX Stat LAB 09/11/23 05:18 Completed BLOOD CULTURE (ED ONLY) Stat LAB 09/11/23 07:03 Received CBC W/ AUTO DIFF Stat LAB 09/11/23 05:02 Completed CMP [COMPREHENSIVE METABOLIC PANEL] Stat LAB 09/11/23 05:02 Completed COVID [SARS COV-2 RNA RAPID MAHESH] Stat LAB 09/11/23 05:24 Completed D-DIMER Stat LAB 09/11/23 05:02 Completed FLU A & B MOLECULAR [FLU A/B MOLECULAR] Stat LAB 09/11/23 05:24 Completed LACTIC ACID Stat LAB 09/11/23 05:02 Completed RSV Stat LAB 09/11/23 05:24 Completed TROPONIN I Stat LAB 09/11/23 05:02 Completed Clonidine HCl [Catapres] Meds 09/11/23 05:30 Discontinued 0.1 mg PO ONCE ONE Ipratropium/Albuterol Neb [Duoneb] Meds 09/11/23 05:12 Discontinued 3 ml NEB ONCE STA Ipratropium/Albuterol Neb [Duoneb] Meds 09/11/23 05:15 Discontinued 3 ml NEB ONCE STA Ipratropium/Albuterol Neb [Duoneb] Meds 09/11/23 06:19 Discontinued 3 ml NEB ONCE STA Levofloxacin/D5w [Levaquin 500 mg/100 ml D5w] Meds 09/11/23 05:17 Discontinued 500 mg in 100 ml IV ONCE Methylprednisolone Sod Succ/Pf [Solu-Medrol 125 mg] Meds 09/11/23 05:35 Discontinued 125 mg IVP ONCE ONE CHEST, 1V AP ONLY Stat RADS 09/11/23 05:15 Completed CTA CHEST PE PROTOCOL Stat RADS 09/11/23 06:36 Completed Medications Discontinued Medications Generic Name Dose Route Start Last Admin Trade Name Freq PRN Reason Stop Dose Admin Albuterol/Ipratropium 3 ml 09/11/23 05:12 09/11/23 05:23 Ipratropium/Albuterol Vial.Neb NEB 09/11/23 05:13 3 ml ONCE STA Administration Albuterol/Ipratropium 3 ml 09/11/23 05:15 09/11/23 05:15 Ipratropium/Albuterol Vial.Neb NEB 09/11/23 05:16 3 ml ONCE STA Administration Albuterol/Ipratropium 3 ml 09/11/23 06:19 09/11/23 06:31 Ipratropium/Albuterol Vial.Neb NEB 09/11/23 06:20 3 ml ONCE STA Administration Clonidine 0.1 mg 09/11/23 05:30 09/11/23 05:45 Clonidine Hcl 0.1 Mg Tablet PO 09/11/23 05:31 0.1 mg ONCE ONE Administration Levofloxacin/Dextrose 500 mg in 100 mls @ 100 mls/hr 09/11/23 05:17 09/11/23 06:00 Levaquin 500 Mg/100 Ml D5w IV 09/11/23 06:16 100 mls/hr ONCE ONE Administration Methylprednisolone Sodium Succinate 125 mg 09/11/23 05:35 09/11/23 05:45 Methylprednisolone Sod Succ/Pf 125 Mg/2 Ml Vial IVP 09/11/23 05:36 125 mg ONCE ONE Administration Vital Signs: Temp Pulse Resp BP Pulse Ox 09/11/23 05:05 98.2 F 79 24 H 189/67 H 90 L MDM: Patient is a 72 yo F here for COPD exacerbation and sob for her second time this week I assumed care from Dr. Layton, with goal to admit for hypoxia after CTPE study results Hx from patient, Dr. Layton, chart review by me 3+ labs and 3 images results reviewed by me Exam concerning for wheezing and icnreased RR I consulted Hospitalist Yari Stephenson amenable to admission Her breathing improved with therapies, but hypoxic, improves to 88-90% with 2 L NC WDX: COPD exacerbation, cough, sob, weakness acute moderate complexity DDX: I considered stemi, PE, sepsis but these were not found SDOH: patient will improve with increased care from admission All questions answered patient admitted stable Discharge Plan Discharge Patient Disposition: ADMITTED INPATIENT Discharge Problem: Respiratory rate increased, Weakness, Hypoxia, COPD exacerbation Prescriptions: No Action bisoprolol fumarate 5 mg tablet See Rx Instructions .ROUTE .COMPLEX Qty: 90 1RF Dose Instruction: TAKE ONE TABLET EVERY MORNING GENERIC FOR ZEBETA Rx Instructions: TAKE ONE TABLET EVERY MORNING GENERIC FOR ZEBETA clopidogrel 75 mg tablet See Rx Instructions .ROUTE .COMPLEX Qty: 90 1RF Dose Instruction: TAKE ONE TABLET DAILY GENERIC FOR PLAVIX Rx Instructions: TAKE ONE TABLET DAILY GENERIC FOR PLAVIX pravastatin 40 mg tablet See Rx Instructions .ROUTE .COMPLEX Qty: 90 1RF Dose Instruction: TAKE ONE TABLET DAILY GENERIC FOR PRAVACHOL Rx Instructions: TAKE ONE TABLET DAILY GENERIC FOR PRAVACHOL tramadol 50 mg tablet 50 mg PO TID PRN (Reason: pain) Qty: 90 2RF albuterol sulfate 90 mcg/actuation HFA aerosol inhaler See Rx Instructions .ROUTE .COMPLEX Qty: 6.7 2RF Dose Instruction: INHALE 2 PUFFS FOUR TIMES DAILY NEEDED Rx Instructions: INHALE 2 PUFFS FOUR TIMES DAILY NEEDED (DME) NEBULIZER Misc See Rx Instructions .ROUTE Qty: 1 0RF Rx Instructions: As directed COPD J44.9 albuterol sulfate 0.63 mg/3 mL solution for nebulization 0.63 mg inhalation QID PRN (Reason: shortness of breath or wheezing) Qty: 90 1RF alprazolam 0.5 mg tablet 0.5 mg PO QHS PRN (Reason: sleep) Qty: 30 2RF potassium chloride 20 mEq tablet,ER particles/crystals 20 meq PO QDAY Qty: 90 1RF prednisone 20 mg tablet 40 mg PO DAILY Qty: 10 0RF Hold Instructions: pt [facility] not [facility]-9-4.8 mcg/actuation HFA aerosol inhaler 2 inh inhalation QAM AND QPM triamcinolone acetonide 0.1 % cream 1 applic topical BID PRN (Reason: rash) Qty: 30 0RF furosemide [Lasix] 40 mg tablet 40 mg PO DAILY PRN (Reason: edema) benzonatate 100 mg capsule 100 mg PO TID PRN (Reason: cough) Qty: 30 1RF Did you review [place] TRUCKLOAD CHECKER for ALL controlled substances?: Not Applicable Discussed opioids are addictive and Narcan is available by prescription or from pharmacy.: No ED Provider: RIKKI CH <BELL LAYTON MD - Last Filed: 09/11/23 06:39> Physician Progress Note: History obtained from the spouse was a patient who has a history of asthma, hypertension, COPD, coronary disease, complains of increasing dyspnea over the past 4 days associated with a nonproductive cough and exertional dyspnea. Patient was seen and evaluated emergency room for asthma date 09/07/2023 and was unaware that there is a prescription for prednisone 40 mg daily for 5 days. Patient denies associated fever, chills, arthralgia. Patient given IV fluids with saline 1 L at 50 mill/hour, Solu-Medrol 120 mg IV, clonidine 0.1 mg orally for blood pressure 189/67. Patient AD is ministered DuoNeb aerosol treatment for pulse oximetry of 90% room air pulse oximetry improved to 94% on 2 L of oxygen Patient received a second DuoNeb aerosol treatment After 2 sets of blood cultures patient ministered Levaquin 5 mg IV piggyback. And arterial blood gases consistent with the pH Portable chest x-ray interpretation by radiologist is consistent with cardiomegaly without evidence of consolidation, pleural effusion or pneumothorax. -7.32, pCO2 41, pO2--60, bicarb-21, saturation-88% Laboratory data troponin less than 0.012, lactic acid 1.4, the CBC and CMP are both within normal limits. [id number] RSV, COVID, influenza A, and influenza B are all negative EKG interpretation by myself is consistent with normal sinus rhythm rate of 76, first-degree block, there is some significant changes inferior laterally. The axis is normal. Differential diagnosis: 1) acute exacerbation of COPD 2) acute exacerbation of asthma patient care endorsed to Dr. Ch at 0 7:05 PM daily results of the CTA PE protocol Patient care endorsed to Dr. Ch at 0705 pending CTA PE protocol of the chest []
[2023-09-11 05:34] LABS: ABG O2 HGB 88.6 % (95-100); ABG PH 7.32 (7.35-7.45); COHb 2.1 (0.5-1.5); HCO3 21.1 (21-28); MetHb 1.1 (0-1.5); TCO2 22.4 (19-24); sO2 88.3 % (94-98); tHb 13.1 g/dl (11.7-17.4)
[2023-09-11 05:45] LABS: BASOPHILS % (AUTO) 0.5 % (0.0-3.0); EOSINOPHILS # (AUTO) 0.4 K/ul (0.0-0.7); EOSINOPHILS % (AUTO) 5.2 % (0.0-7.0); HEMOGLOBIN 12.8 g/dl (12.0-16.0); IMMATURE GRANULOCYTE % (AUTO) 0.4 % (0.0-5.0); LYMPHOCYTES # (AUTO) 1.4 K/uL (0.60-3.4); LYMPHOCYTES % (AUTO) 16.4 (10.0-50.0); MEAN CORPUSCULAR HEMOGLOBIN 32.9 pg (27.0-31.0); MEAN CORPUSCULAR VOLUME 102.8 fl (81.0-99.0); MONOCYTES # (AUTO) 0.7 K/uL (0.4-2.0); MONOCYTES % (AUTO) 8.6 (0-10); NEUTROPHILS # (AUTO) 5.7 K/ul (2.0-6.9); NEUTROPHILS % (AUTO) 68.9 % (42.2-75.2); PLATELET COUNT 107 10^3/uL (140-440); RDW COEFFICIENT OF VARIATION 13.4 % (11.6-14.8); RED BLOOD COUNT 3.89 10^6/ul (4.20-5.40); WHITE BLOOD COUNT 8.23 K/ul (4.6-10.2)
[2023-09-11] MEDS: CATAPRES PO ONE (05:45)
[2023-09-11] MEDS: SOLU-MEDROL 125 MG IVP ONE (05:45)
--- NOTE | 2023-09-11 05:45 | DI ---
EXAM: AP CHEST. HISTORY: Dyspnea. FINDINGS: There is overlying lead artifact which limits the exam. The cardiac silhouette is enlarged . The pulmonary vasculature is within normal limits. The costophrenic angles are clear. There are calcified granulomas. No infiltrate or consolidation. There are calcified granulomas. Impression: Cardiomegaly.
[2023-09-11 05:58] LABS: ALANINE AMINOTRANSFERASE 21.5 U/L (0-35); ALBUMIN 3.92 g/dL (3.5-5.0); ASPARTATE AMINO TRANSFERASE 37.3 U/L (14-36); BILIRUBIN,TOTAL 1.07 mg/dL (0.2-1.3); BLOOD UREA NITROGEN 18.4 mg/dL (7-17); CALCIUM 8.99 mg/dL (8.4-10.2); CARBON DIOXIDE 19.2 mmol/L (22-30.0); CHLORIDE 112.8 mmol/L (98-107); CREATININE 0.82 mg/dL (0.60-1.30); GLUCOSE 128.2 mg/dL (74-106); POTASSIUM 3.76 mmol/L (3.5-5.1); TOTAL PROTEIN 7.47 g/dL (6.3-8.2)
[2023-09-11] MEDS: LEVAQUIN 500 MG/100 ML D5W 500 MG/100 ML BAG IV ONE (06:00)
[2023-09-11 06:12] LABS: TROPONIN I < 0.012 ng/ml (0.0000-0.120)
[2023-09-11 06:31] LABS: MOLECULAR FLU A NEGATIVE BY NAAT (NEGATIVE); MOLECULAR FLU B NEGATIVE BY NAAT (NEGATIVE); RSV MOLECULAR NEGATIVE BY NAAT (NEGATIVE); SARS COV-2 RNA RAPID NAAT NEGATIVE (NEGATIVE)
--- NOTE | 2023-09-11 07:19 | CT ---
EXAM: CT ANGIOGRAM CHEST. HISTORY: Acute dyspnea. Elevated D-dimer. COMPARISON: Radiograph earlier the same day. CT 12/18/2019. TECHNIQUE: Multiple axial images of the chest were obtained following intravenous administration of 75 mL Omnipaque 350, low osmolar. Images were reformatted in the sagittal and coronal plane. 3-D an d maximum intensity projection reformatted images were created on an independent workstation. FINDINGS: Calcified and noncalcified mediastinal lymph nodes are present. Heart enlarged. Atherosclerotic calcifications present within the aorta and coronary arteries. Ther e is no aortic dissection. No pulmonary arterial filling defect identified. No pericardial effusion . There is bilateral bronchial thickening with scattered areas of endobronchial opacification and band- like opacities in both lungs. No consolidation, pleural effusion or pneumothorax identified. Limited images of the upper abdomen demonstrate cirrhotic liver morphology. Bilateral renal cysts no kya. Stable multilevel thoracic vertebral compression deformities. Diffuse idiopathic skeletal hyperostos is noted. IMPRESSION: 1. No pulmonary embolus. 2. Bilateral bronchial thickening and areas of subsegmental atelectasis. 3. Cardiomegaly and atherosclerosis. All CT scans are performed using dose optimization techniques as appropriate to the performed exam an d include at least one of the following: Automated exposure control, adjustment of the mA and/or kV according t o size, and the use of iterative reconstruction technique.
[2023-09-11 09:30] VITALS: BMI 32.6
[2023-09-11] MEDS ORDERED: TESSALON PERLES PO PRN (11:57)
[2023-09-11] MEDS ORDERED: TYLENOL PO PRN (11:59)
--- NOTE | 2023-09-11 12:07 | PCM ---
Date of Service Date Seen by Provider: 09/11/23 Time Seen by Provider: 09:15 Admit Day/Time Admission Date: 09/11/23 Admission Time: 08:12 Reason for Admission Chief Complaint: HYPOXIA Hospital Provider Hospital Provider: KAMILAH MARTEL PA-C, [facility] [place] Phys[place] Primary Care Physician: TITO MONIQUE MD History of Present Illness History of Present Illness: Patient is a 72 year old female from home with pmhx of COPD/asthma, hypertension, hyperlipidemia, CAD, hx of DVT, Anemia, osteoporosis, who presented to the ER for a second time this week for worsening SOB. Patient states she started feeling bad earlier in the week. Has had cough and sob, worse with exertion. No chest pain, abd pain, or fever. Was found to have PO2 of 60 in ER and reportedly in upper 80s on pulse ox. She recovered with 2L. Does not wear O2 at home. CTA chest without acute abnormalities. Pt received levaquin, solumedrol, and duoneb. She states she's feeling some better. Has hx of smoking. Case Discussed With Case Discussed With: Patient's case was discussed with the ER Physicians, Dr. Roche. [facility] Medical History Adult general medical exam Z00.00 - Encounter for general adult medical examination without abnormal findings (ICD-10) Upper respiratory infection J06.9 - Acute upper respiratory infection, unspecified (ICD-10) Infection of total left knee replacement T84.54XA - Infection and inflammatory reaction due to internal left knee prosthesis, initial encounter (ICD-10) Fracture of left femur repair 09/13 S72.92XA - Unspecified fracture of left femur, initial encounter for closed fracture (ICD-10) Surgical History History of total left knee replacement (TKR) Z96.652 - Presence of left artificial knee joint (ICD-10) S/P femoral-popliteal bypass surgery 10/11 Z95.828 - Presence of other vascular implants and grafts (ICD-10) History of cholecystectomy Z98.89 - Other specified postprocedural states (ICD-10) History of appendectomy Z98.89 - Other specified postprocedural states (ICD-10) History of hysterectomy Z90.710 - Acquired absence of both cervix and uterus (ICD-10) Family History FATHER Myocardial infarct Mother Cancer of pancreas Diabetes Social History Smoking and tobacco status: Former smoker Smokeless tobacco user: other Alcohol intake: never Substance use type: does not use Special ciro needs: No Agree to transfusion: Yes Adopted: No Caregiver/support person: No Foster care: No Household members: spouse Housing: house Marital status: M Lives independently: Yes Daycare: no daycare service: No MCC: No Current occupational status: retired History of recent travel: No Do you think of yourself as: straight/heterosexual Current gender identity: female Seatbelt use: always Drives intoxicated or rides with intoxicated skidder driver: No Water heater temperature set < 120 degrees: Yes Working smoke detector in home: Yes Fire extinguisher in home: Yes Carbon monoxide detector in home: Yes Allergies Allergies Allergy/AdvReac Type Severity Reaction Status Date / Time acetaminophen [From Tylenol] AdvReac Mild Unknown Verified 09/11/23 05:14 ampicillin AdvReac Unknown Verified 09/11/23 05:14 aspirin [From Percodan] AdvReac Unknown Verified 09/11/23 05:14 codeine AdvReac Unknown Verified 09/11/23 05:14 cyclobenzaprine AdvReac Anxiety Verified 09/11/23 05:14 [From Flexeril] escitalopram [From Lexapro] AdvReac Unknown Verified 09/11/23 05:14 hydromorphone HCl AdvReac Unknown Verified 09/11/23 05:14 [From Dilaudid] iron AdvReac Vomiting Verified 09/11/23 05:14 latex AdvReac Unknown Verified 09/11/23 05:14 losartan [From Cozaar] AdvReac Unknown Verified 09/11/23 05:14 meperidine HCl [From Demerol] AdvReac Unknown Verified 09/11/23 05:14 morphine AdvReac Unknown Verified 09/11/23 05:14 oxycodone [From Percodan] AdvReac Unknown Verified 09/11/23 05:14 Penicillins AdvReac Unknown Verified 09/11/23 05:14 pramipexole [From Mirapex] AdvReac Unknown Verified 09/11/23 05:14 Current Medications Home Medications benzonatate 100 mg capsule 100 mg PO TID PRN cough #30 caps 10/19/22 [Rx Confirmed 09/11/23 Last Taken Unknown] furosemide 40 mg tablet (Lasix) 40 mg PO DAILY PRN edema 10/19/22 [History Confi rmed 09/11/23 Last Taken Unknown] bisoprolol fumarate 5 mg tablet See Rx Instructions .Route .COMPLEX #90 tabs 03/25/23 [Rx Confirmed 09/11/23 Last Taken Unknown] clopidogrel 75 mg tablet See Rx Instructions .Route .COMPLEX #90 tabs 03/25/23 [Rx Confirmed 09/11/23 Last Taken Unknown] pravastatin 40 mg tablet See Rx Instructions .Route .COMPLEX #90 tabs 04/21/23 [Rx Confirmed 09/11/23 Last Taken Unknown] budesonide 160 mcg-glycopyr 9 mcg-formot 4.8 mcg/actuation HFA inhaler (Breztri Aerosphere) 2 inh inhalation QAM AND QPM 05/18/23 [History Confirmed 09/11/23 Last Taken Unknown] tramadol 50 mg tablet 50 mg PO TID PRN pain #90 tabs 06/17/23 [Rx Confirmed 09/11/23 Last Taken Unknown] C.NEBULIZER (NEBULIZER) #1 ea 07/14/23 [Rx Confirmed 09/11/23 Last Taken Unknown] albuterol sulfate 0.63 mg/3 mL solution for nebulization 0.63 mg (3 mL) inhalation QID PRN shortness of breath or wheezing #90 mL 07/14/23 [Rx Confirmed 09/11/23 Last Taken 09/11/23 04:30] albuterol sulfate 90 mcg/actuation aerosol inhaler See Rx Instructions .Route .COMPLEX copd #6.7 ea 07/14/23 [Rx Confirmed 09/11/23 Last Taken Unknown] alprazolam 0.5 mg tablet 0.5 mg PO QHS PRN sleep #30 ea 07/19/23 [Rx Confirmed 09/11/23 Last Taken Unknown] potassium chloride 20 mEq tablet,extended release(part/cryst) 20 meq PO QDAY #90 ea 08/12/23 [Rx Confirmed 09/11/23 Last Taken Unknown] triamcinolone acetonide 0.1 % topical cream 1 applic topical BID PRN rash #30 grams 08/23/23 [Rx Confirmed 09/11/23 Last Taken Unknown] prednisone 20 mg tablet 40 mg (2 x 20 mg) PO DAILY #10 tabs 09/07/23 [Rx Confirmed 09/11/23 Last Taken Unknown] levofloxacin 750 mg tablet 750 mg PO DAILY #5 tabs 09/12/23 [Rx Last Taken Unknown] Home Discontinued Medications Acetaminophen (Acetaminophen 325 Mg Tablet) 650 mg PO Q4H PRN PRN Reason: Mild Pain Albuterol/Ipratropium (Ipratropium/Albuterol Vial.Neb) 3 ml NEB ONCE STA Stop: 09/11/23 05:13 Last Admin: 09/11/23 05:23 Dose: 3 ml Albuterol/Ipratropium (Ipratropium/Albuterol Vial.Neb) 3 ml NEB ONCE STA Stop: 09/11/23 05:16 Last Admin: 09/11/23 05:15 Dose: 3 ml Albuterol/Ipratropium (Ipratropium/Albuterol Vial.Neb) 3 ml NEB ONCE STA Stop: 09/11/23 06:20 Last Admin: 09/11/23 06:31 Dose: 3 ml Albuterol/Ipratropium (Ipratropium/Albuterol Vial.Neb) 3 ml NEB RTQ6H [facility] Last Admin: 09/12/23 11:21 Dose: 3 ml Alprazolam (Alprazolam 0.5 Mg Tablet) 0.5 mg PO BEDTIME PRN PRN Reason: insomnia Last Admin: 09/11/23 21:20 Dose: 0.5 mg Benzonatate (Benzonatate 100 Mg Capsule) 100 mg PO TID PRN PRN Reason: Cough Bisoprolol Fumarate (Bisoprolol Fumarate 5 Mg Tablet) 5 mg PO DAILY [facility] Last Admin: 09/12/23 08:11 Dose: 5 mg Bisoprolol Fumarate (Bisoprolol Fumarate 5 Mg Tablet) 5 mg PO ONCE ONE Stop: 09/11/23 12:24 Last Admin: 09/11/23 13:09 Dose: 5 mg Clonidine (Clonidine Hcl 0.1 Mg Tablet) 0.1 mg PO ONCE ONE Stop: 09/11/23 05:31 Last Admin: 09/11/23 05:45 Dose: 0.1 mg Clopidogrel Bisulfate (Clopidogrel Bisulfate 75 Mg Tablet) 75 mg PO DAILY [facility] Last Admin: 09/12/23 08:12 Dose: 75 mg Clopidogrel Bisulfate (Clopidogrel Bisulfate 75 Mg Tablet) 75 mg PO ONCE ONE Stop: 09/11/23 12:24 Last Admin: 09/11/23 13:08 Dose: 75 mg Enoxaparin Sodium (Enoxaparin Sodium 40 Mg/0.4 Ml Syr) 40 mg SUBCUT DAILY [facility] Last Admin: 09/12/23 08:51 Dose: Not Given Levofloxacin/Dextrose (Levaquin 500 Mg/100 Ml D5w) 500 mg in 100 mls @ 100 mls/hr IV ONCE ONE Stop: 09/11/23 06:16 Last Admin: 09/11/23 06:00 Dose: 100 mls/hr Levofloxacin/Dextrose (Levaquin 750 Mg/150 Ml D5w) 750 mg in 150 mls @ 100 mls/hr IV DAILY [facility] Stop: 09/15/23 08:59 Last Admin: 09/12/23 08:12 Dose: 100 mls/hr Methylprednisolone Sodium Succinate (Methylprednisolone Sod Succ/Pf 125 Mg/2 Ml Vial) 125 mg IVP ONCE ONE Stop: 09/11/23 05:36 Last Admin: 09/11/23 05:45 Dose: 125 mg Methylprednisolone Sodium Succinate (Methylprednisolone Sod Succ/Pf 40 Mg/Ml Vial) 40 mg IVP Q8HR [facility] Last Admin: 09/12/23 13:23 Dose: 40 mg Non-Formulary Medication (Ngzunbwfly-Upqdddur-Ktveetumue [Breztri Aerosphere]) 2 inh IH BID [facility] Last Admin: 09/12/23 13:12 Dose: Not Given Ondansetron HCl (Ondansetron Hcl/Pf 4 Mg/2 Ml Sdv) 4 mg IVP Q6H PRN PRN Reason: Nausea / Vomiting Last Admin: 09/12/23 09:54 Dose: 4 mg Pravastatin Sodium (Pravastatin Sodium 40 Mg Tablet) 40 mg PO BEDTIME [facility] Last Admin: 09/11/23 21:13 Dose: 40 mg Pravastatin Sodium (Pravastatin Sodium 40 Mg Tablet) 40 mg PO ONCE ONE Stop: 09/11/23 12:24 Last Admin: 03/16/24 13:09 Dose: 40 mg Sodium Chloride (0.9% Sodium Chloride 10 Ml Disp.Syrin) 1 syr IVF Q8HR [facility] Last Admin: 09/12/23 13:23 Dose: 1 syr Tramadol HCl (Tramadol Hcl 50 Mg Tablet) 50 mg PO TID PRN PRN Reason: MODERATE PAIN Last Admin: 09/12/23 09:42 Dose: 50 mg Opioid Naive vs. Tolerant Does Patient Take Opioids?: No Is Patient Opioid Naive?: Yes What is Opioid Naive?: *Opioid Naive implies the patient is not already taking opioids or not chronically receiving opioids on a daily basis. *PRN dosing is not "usually" associated with tolerance. *Patients are at higher risk of over-sedation and aspiration. Is Patient Opioid Tolerant?: No What is Opioid Tolerant?: *Opioid Tolerance implies less than the expected response to an opioid. *Acquired tolerance is defined by the patient taking 60mg of oral morphine daily (or equianalgesic dose of another opioid) for 1 week or more. *Often associated with chronic pain. *May take more than usual dose to achieve desired pain control. Review of Systems Constitutional: Reports Weakness; Denies Fever or Fatigue Head: Reports Normocephalic and Atraumatic Cardiovascular: Denies Chest pain, Chest Pressure or Edema Respiratory: Reports Cough and Shortness of air Gastrointestinal: Denies Nausea, Vomiting, Diarrhea, Abdominal pain or Melena Genitourinary: Denies Dysuria or Frequency Dermatologic: Denies Rashes Neurological: Denies Headache, Dizziness or Syncope Physical examination Most Recent Vital Signs: Most Recent Vital Signs Temperature 97.5 F L 09/11/23 09:11 Temperature Source Oral 09/11/23 09:11 Temperature Source Oral 09/11/23 05:05 Pulse Rate 72 09/11/23 09:11 Respiratory Rate 18 09/11/23 09:11 Blood Pressure 189/67 H 09/11/23 05:05 Blood Pressure Left Arm 135/69 09/11/23 09:11 Blood Pressure Position Sitting 09/11/23 09:11 O2 Sat by Pulse Oximetry 93 L 09/11/23 09:11 Oxygen Delivery Method Nasal Cannula 09/11/23 09:11 Oxygen Flow Rate 2 09/11/23 09:11 Height 4 ft 10 in 09/11/23 09:11 Weight 156 lb 4 oz 09/11/23 09:11 Telemetry Type Remote Telemetry 09/11/23 09:55 Telemetry Monitoring Started 09/11/23 09:55 Telemetry Heart Rate 73 09/11/23 09:55 Telemetry SPO2 96 12/21/19 00:51 EKG NH Interval 0.27 H 09/11/23 09:55 EKG QRS Interval 0.06 09/11/23 09:55 Telemetry Strip Reading SR w 1st degree AVB 09/11/23 09:55 Appearance: Positive No Apparent Distress and Alert and Oriented x3 Skin: Positive [place], Warm and Good Turgor; Negative Rashes HEENT: Positive Normocephalic and Atraumatic Neck: Positive Supple and Midline Trachea Chest/Lungs: Positive Clear to Auscultation Bilaterally and Wheezes (+mild, malachi ); Negative Rales or Rhonci Heart: Positive RRR GI/: Positive Soft, Nontender, Bowel Sounds Normal and No Distention Extremities: Negative Edema Neurological: Positive Cranial Nerves Intact, Alert, Oriented and Muscle Strength 5/5 in Upper and Lower Extremities Bilaterally Psychiatric: Positive Oriented x4, Appropriate Mood and Appropriate Affect Labs This Visit Labs This Visit: Labs This Visit 09/11/23 09/11/23 09/11/23 05:02 05:18 05:24 WBC 8.23 RBC 3.89 L Hgb 12.8 Hct 40.0 MCV 102.8 H MCH 32.9 H MCHC 32.0 RDW Coeff of Nazario 13.4 Plt Count 107 L Immature Gran % (Auto) 0.4 Neut % (Auto) 68.9 Lymph % (Auto) 16.4 [place] % (Auto) 8.6 Eos % (Auto) 5.2 Baso % (Auto) 0.5 Neut # (Auto) 5.7 Lymph # (Auto) 1.4 [place] # (Auto) 0.7 Eos # (Auto) 0.4 Baso # (Auto) 0.0 Immature Gran # (Auto) 0.0 Puncture Site Ra Base Excess -5.0 L O2 Saturation 88.3 L ABG pH 7.32 L ABG pCO2 41.0 ABG pO2 60.0 L ABG HCO3 21.1 ABG Total CO2 22.4 Hari Test Pos Hemoglobin 1.1 Oxyhemoglobin 88.6 L Carboxyhemoglobin 2.1 H Total Hemoglobin 13.1 O2 Delivery Device Ra FiO2 % 21.0 Sodium 139.0 Potassium 3.76 Chloride 112.8 H Carbon Dioxide 19.2 L Anion Gap 10.76 BUN 18.4 H Creatinine 0.82 Estimated GFR (MDRD) 68.00 BUN/Creatinine Ratio 22.43 Glucose 128.2 H Lactic Acid 1.42 Calcium 8.99 Total Bilirubin 1.07 AST 37.3 H ALT 21.5 Alkaline Phosphatase 160.0 H Troponin I < 0.012 Total Protein 7.47 Albumin 3.92 Globulin 3.55 Albumin/Globulin Ratio 1.10 D-Dimer 2621.13 H Influ A Molecular Assay Negative by naat Influ B Molecular Assay Negative by naat RSV Antigen Negative by naat SARS CoV-2 RNA Rapid MAHESH Negative Imaging Imaging: EXAM: AP CHEST. HISTORY: Dyspnea. FINDINGS: There is overlying lead artifact which limits the exam. The cardiac silhouette is enlarged. The pulmonary vasculature is within normal limits. The costophrenic angles are clear. There are calcified granulomas. No infiltrate or consolidation. There are calcified granulomas. Impression: Cardiomegaly. EXAM: CT ANGIOGRAM CHEST. HISTORY: Acute dyspnea. Elevated D-dimer. COMPARISON: Radiograph earlier the same day. CT 12/18/2019. TECHNIQUE: Multiple axial images of the chest were obtained following intravenous administration of 75 mL Omnipaque 350, low osmolar. Images were reformatted in the sagittal and coronal plane. 3-D and maximum intensity projection reformatted images were created on an independent workstation. FINDINGS: Calcified and noncalcified mediastinal lymph nodes are present. Heart enlarged. Atherosclerotic calcifications present within the aorta and coronary arteries. There is no aortic dissection. No pulmonary arterial filling defect identified. No pericardial effusion. There is bilateral bronchial thickening with scattered areas of endobronchial opacification and band-like opacities in both lungs. No consolidation, pleural effusion or pneumothorax identified. Limited images of the upper abdomen demonstrate cirrhotic liver morphology. Bilateral renal cysts noted. Stable multilevel thoracic vertebral compression deformities. Diffuse idiopathic skeletal hyperostosis noted. IMPRESSION: 1. No pulmonary embolus. 2. Bilateral bronchial thickening and areas of subsegmental atelectasis. 3. Cardiomegaly and atherosclerosis. Review Statement Review Statement: I have independently reviewed and interpreted the labs/EKGs/imaging that were ordered by the ER provider. I have reviewed all outside records that are diamante ilable currently in our EMR including imaging/notes/labs from previous visits. Plan Plan: 1. Acute hypoxic respiratory failure in setting of acute COPD exacerbation - Abx, steroids, O2, wean when able. 2. Acute COPD exacerbation - Plan as above 3. Hypertension - Cont home meds 4. Hyperlipidemia - Cont home meds DVT Prophylaxis: Lovenox Time Spent: Greater than 80 minutes spent with patient, 50% of the time spent with this patient was devoted to counseling and coordination of care. [facility] minutes spent discussing advance care planning. DNI/CPR Admit to: Inpatient Discussed Plan of Care with Dr. Osman Monique. Medications Medication Orders: Medications Ordered Category Date Time Status Acetaminophen [Tylenol] Meds 09/11/23 11:59 Ordered 650 mg PO Q4H PRN Alprazolam [Xanax] Meds 09/11/23 11:57 Ordered 0.5 mg PO QHS PRN Benzonatate [Tessalon Perles] Meds 09/11/23 11:57 Ordered 100 mg PO TID PRN Bisoprolol Fumarate [Zebeta] Meds 09/11/23 12:00 Ordered See Dose Instructions PO .COMPLEX Clopidogrel Bisulfate [Plavix] Meds 09/11/23 12:00 Ordered See Dose Instructions PO .COMPLEX Enoxaparin Sodium [Lovenox] Meds 09/12/23 09:00 Ordered 40 mg SUBCUT DAILY Ipratropium/Albuterol Neb [Duoneb] Meds 09/11/23 12:00 Ordered 3 ml NEB RTQ6H Levofloxacin/D5w [Levaquin 750 mg/150 ml D5w] Meds 09/12/23 09:00 Ordered 750 mg in 150 ml IV DAILY Methylprednisolone Sod Succ/Pf [Solu-Medrol 40 mg] Meds 09/11/23 13:30 Ordered 40 mg IVP Q8HR Pravastatin Sodium [Pravachol] Meds 09/11/23 12:00 Ordered See Dose Instructions PO .COMPLEX Tramadol HCl [Ultram] Meds 09/11/23 11:57 Ordered 50 mg PO TID PRN kkdslicftv-gxyxlhfy-feuolsjfrd [Breztri Aerosphere] Meds 09/11/23 12:00 Ordered 2 inh IH QAM AND QPM
[2023-09-11] MEDS: DUONEB NEB SCH (12:59)
[2023-09-11] MEDS: PLAVIX PO ONE (13:08)
[2023-09-11] MEDS: PRAVACHOL PO ONE (13:09)
[2023-09-11] MEDS: ZEBETA PO ONE (13:09)
[2023-09-11] MEDS: SOLU-MEDROL 40 MG IVP SCH (13:25)
[2023-09-11] MEDS: ULTRAM PO PRN (13:29)
[2023-09-11] MEDS: PRAVACHOL PO SCH (21:13)
[2023-09-11] MEDS: XANAX PO PRN (21:20)
[2023-09-12 05:39] LABS: BASOPHILS % (AUTO) 0.1 % (0.0-3.0); HEMATOCRIT 36.9 % (37.0-47.0); HEMOGLOBIN 11.7 g/dl (12.0-16.0); IMMATURE GRANULOCYTE # (AUTO) 0.1 (0.0-1.0); IMMATURE GRANULOCYTE % (AUTO) 0.9 % (0.0-5.0); LYMPHOCYTES # (AUTO) 0.7 K/uL (0.60-3.4); LYMPHOCYTES % (AUTO) 7.3 (10.0-50.0); MEAN CORPUSCULAR HEMOGLOBIN 32.5 pg (27.0-31.0); MEAN CORPUSCULAR HGB CONC 31.7 (31.8-35.4); MEAN CORPUSCULAR VOLUME 102.5 fl (81.0-99.0); MONOCYTES # (AUTO) 0.3 K/uL (0.4-2.0); MONOCYTES % (AUTO) 3.6 (0-10); NEUTROPHILS # (AUTO) 7.9 K/ul (2.0-6.9); NEUTROPHILS % (AUTO) 88.1 % (42.2-75.2); PLATELET COUNT 81 10^3/uL (140-440); RDW COEFFICIENT OF VARIATION 13.2 % (11.6-14.8); WHITE BLOOD COUNT 8.93 K/ul (4.6-10.2)
[2023-09-12 06:01] VITALS: BP 134/66; TEMP 98.4
[2023-09-12 06:01] LABS: ALANINE AMINOTRANSFERASE 21.1 U/L (0-35); ALBUMIN 3.7 g/dL (3.5-5.0); ALKALINE PHOSPHATASE 89.5 U/L (53-141); ASPARTATE AMINO TRANSFERASE 29.6 U/L (14-36); BILIRUBIN,TOTAL 0.83 mg/dL (0.2-1.3); BLOOD UREA NITROGEN 17.6 mg/dL (7-17); CALCIUM 9.16 mg/dL (8.4-10.2); CARBON DIOXIDE 19.9 mmol/L (22-30.0); CHLORIDE 112.5 mmol/L (98-107); CREATININE 0.86 mg/dL (0.60-1.30); GLUCOSE 161.2 mg/dL (74-106); POTASSIUM 3.74 mmol/L (3.5-5.1); SODIUM 139.8 mmol/L (134.5-145); TOTAL PROTEIN 6.96 g/dL (6.3-8.2)
[2023-09-12] MEDS: ZEBETA PO SCH (08:11)
[2023-09-12] MEDS: PLAVIX PO SCH (08:12)
[2023-09-12] MEDS: LEVAQUIN 750 MG/150 ML D5W 750 MG/150 ML BAG IV SCH (08:12)
[2023-09-12 08:49] VITALS: PULSE 70; RESP 16
[2023-09-12] MEDS: LOVENOX SUBCUT SCH (08:51)
[2023-09-12] MEDS: ZOFRAN 4 MG/2 ML IVP PRN (09:54)
[2023-09-12] MEDS: NON-FORMULARY MEDICATION (Budesonide-Glycopyr-Formoterol [Breztri Aerosphere] 160-9-4.8 mc IH SCH (11:46)
--- NOTE | 2023-09-12 11:49 | DCSUM ---
Admission Date Admission Date: 09/11/23 Discharge Date Discharge Date: 09/12/23 Admission Diagnosis Admission Diagnosis: 1. Acute hypoxic respiratory failure in setting of acute COPD exacerbation 2. Acute COPD exacerbation 3. Hypertension 4. Hyperlipidemia Discharge Diagnosis Discharge Diagnosis: 1. Acute hypoxic respiratory failure in setting of acute COPD exacerbation - Resolved 2. Acute COPD exacerbation - Improving 3. Hypertension - Chronic, stable 4. Hyperlipidemia - Chronic, stable Hospital Provider Hospital Provider: KAMILAH MARTEL PA-C, [facility] [place] Primary Care Physician Primary Care Physician: TITO MONIQUE MD Summary of History and Physical Summary of History and Physical: Patient is a 72 year old female from home with pmhx of COPD/asthma, hypertension, hyperlipidemia, CAD, hx of DVT, Anemia, osteoporosis, who presented to the ER for a second time this week for worsening SOB. Patient states she started feeling bad earlier in the week. Has had cough and sob, worse with exertion. No chest pain, abd pain, or fever. Was found to have PO2 of 60 in ER and reportedly in upper 80s on pulse ox. She recovered with 2L. Does not wear O2 at home. CTA chest without acute abnormalities. Pt received levaquin, solumedrol, and duoneb. She states she's feeling some better. Has hx of smoking. Hospital Course Subjective: During stay, patient receiving levaquin, steroids, and nebulizer treatments. She was weaned to room air and has tolerated being without oxygen well. Vital signs stable. Labs within normal limits. She was prescribed prednisone by ER provider that was not picked up. 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 RX for levaquin sent to pharmacy. Continue to use home inhalers as previously prescribed. No changes to home medications. Appearance: Pleasant, No Apparent Distress and Alert HEENT: MMM, Supple and No JVD CVS: No Murmur and No Rubs Abdomen: Soft, Non-Tender and No Distention Respiratory: No Dyspnea Extremities: No Edema Vital Signs: Most Recent Vital Signs Temperature 98.4 F 09/12/23 06:00 Temperature Source Temporal Artery Scan 09/12/23 06:00 Temperature Source Oral 09/11/23 05:05 Pulse Rate 70 09/12/23 08:00 Respiratory Rate 16 09/12/23 08:00 Blood Pressure 134/66 09/12/23 06:00 Blood Pressure Mean 88 09/12/23 06:00 Blood Pressure Left Arm 135/69 09/11/23 09:11 Blood Pressure Location Left Arm 09/12/23 06:00 Blood Pressure Position Supine 09/12/23 06:00 O2 Sat by Pulse Oximetry 94 L 09/12/23 10:00 Oxygen Delivery Method Room Air 09/12/23 10:00 Oxygen Flow Rate 2 09/12/23 05:28 Height 4 ft 10 in 09/11/23 18:27 Weight 150 lb 4 oz 09/11/23 18:27 Telemetry Type Remote Telemetry 09/12/23 07:00 Telemetry Monitoring Continues 09/12/23 07:00 Telemetry Heart Rate 75 09/12/23 07:00 Telemetry SPO2 96 12/21/19 00:51 EKG [place] Interval 0.17 09/12/23 07:00 EKG QRS Interval 0.08 09/12/23 07:00 Telemetry Strip Reading SR 09/12/23 07:00 Lab Results Last 24 Hours: 09/12/23 05:31 WBC 8.93 RBC 3.60 L Hgb 11.7 L Hct 36.9 L MCV 102.5 H MCH 32.5 H MCHC 31.7 L RDW Coeff of Nazario 13.2 Plt Count 81 L Immature Gran % (Auto) 0.9 Neut % (Auto) 88.1 H Lymph % (Auto) 7.3 L [place] % (Auto) 3.6 Eos % (Auto) 0.0 Baso % (Auto) 0.1 Neut # (Auto) 7.9 H Lymph # (Auto) 0.7 [place] # (Auto) 0.3 L Eos # (Auto) 0.0 Baso # (Auto) 0.0 Immature Gran # (Auto) 0.1 Sodium 139.8 Potassium 3.74 Chloride 112.5 H Carbon Dioxide 19.9 L Anion Gap 11.14 BUN 17.6 H Creatinine 0.86 Estimated GFR (MDRD) 65.00 BUN/Creatinine Ratio 20.46 Glucose 161.2 H Calcium 9.16 Total Bilirubin 0.83 AST 29.6 ALT 21.1 Alkaline Phosphatase 89.5 D Total Protein 6.96 Albumin 3.70 Globulin 3.26 Albumin/Globulin Ratio 1.13 Discharge Instructions Discharge Planning: Discharge Planning > 40 minutes If patient is discharged with left ventricular systolic dysfunction: NA Discharged with a beta john? [] If no, why not? [] Discharged with an miriam/arb? [] If no, why not? [] DX: ACUTE HYPOXIC RESPIRATORY FAILURE IN SETTING OF COPD EXACERBATION RX: LEVAQUIN REGULAR DIET ACTIVITY TOLERATED FOLLOW-UP WITH PCP THIS WEEK Discharge Medications: Medications at Discharge (Home Meds & RX) benzonatate 100 mg capsule 100 mg PO TID PRN cough #30 caps 10/19/22 furosemide 40 mg tablet (Lasix) 40 mg PO DAILY PRN edema 10/19/22 bisoprolol fumarate 5 mg tablet See Rx Instructions .Route .COMPLEX #90 tabs 03/25/23 clopidogrel 75 mg tablet See Rx Instructions .Route .COMPLEX #90 tabs 03/25/23 pravastatin 40 mg tablet See Rx Instructions .Route .COMPLEX #90 tabs 04/21/23 budesonide 160 mcg-glycopyr 9 mcg-formot 4.8 mcg/actuation HFA inhaler ([employer]) 2 inh inhalation QAM AND QPM 05/18/23 tramadol 50 mg tablet 50 mg PO TID PRN pain #90 tabs 06/17/23 C.NEBULIZER (NEBULIZER) #1 ea 07/14/23 albuterol sulfate 0.63 mg/3 mL solution for nebulization 0.63 mg (3 mL) inhalation QID PRN shortness of breath or wheezing #90 mL 07/14/23 albuterol sulfate 90 mcg/actuation aerosol inhaler See Rx Instructions .Route .COMPLEX copd #6.7 ea 07/14/23 alprazolam 0.5 mg tablet 0.5 mg PO QHS PRN sleep #30 ea 07/19/23 potassium chloride 20 mEq tablet,extended release(part/cryst) 20 meq PO QDAY #90 ea 08/12/23 triamcinolone acetonide 0.1 % topical cream 1 applic topical BID PRN rash #30 grams 08/23/23 prednisone 20 mg tablet 40 mg (2 x 20 mg) PO DAILY #10 tabs 09/07/23 Discharge Plan Discharge Discharge Orders: Discharge Patient (ONCE); Ordered 09/12/23 Ordered By: DEBBIE SILVESTRE Activity Restrictions/Additional Instructions: Regular diet Activity as tolerated Follow-up with PCP this week Medications: Levaquin 750 mg daily x 5 days Complete course of prednisone as prescribed by ER provider Use home inhalers as previously prescribed Instructions: COPD (Chronic Obstructive Pulmonary Disease) (GEN) Patient Disposition: HOME SELF-CARE Prescriptions: New levofloxacin 750 mg tablet 750 mg PO DAILY Qty: 5 0RF Continued bisoprolol fumarate 5 mg tablet See Rx Instructions .ROUTE .COMPLEX Qty: 90 1RF Dose Instruction: TAKE ONE TABLET EVERY MORNING GENERIC FOR ZEBETA Rx Instructions: TAKE ONE TABLET EVERY MORNING GENERIC FOR ZEBETA clopidogrel 75 mg tablet See Rx Instructions .ROUTE .COMPLEX Qty: 90 1RF Dose Instruction: TAKE ONE TABLET DAILY GENERIC FOR PLAVIX Rx Instructions: TAKE ONE TABLET DAILY GENERIC FOR PLAVIX pravastatin 40 mg tablet See Rx Instructions .ROUTE .COMPLEX Qty: 90 1RF Dose Instruction: TAKE ONE TABLET DAILY GENERIC FOR PRAVACHOL Rx Instructions: TAKE ONE TABLET DAILY GENERIC FOR PRAVACHOL tramadol 50 mg tablet 50 mg PO TID PRN (Reason: pain) Qty: 90 2RF albuterol sulfate 90 mcg/actuation HFA aerosol inhaler See Rx Instructions .ROUTE .COMPLEX Qty: 6.7 2RF Dose Instruction: INHALE 2 PUFFS FOUR TIMES DAILY NEEDED Rx Instructions: INHALE 2 PUFFS FOUR TIMES DAILY NEEDED (DME) NEBULIZER Misc See Rx Instructions .ROUTE Qty: 1 0RF Rx Instructions: As directed COPD J44.9 albuterol sulfate 0.63 mg/3 mL solution for nebulization 0.63 mg inhalation QID PRN (Reason: shortness of breath or wheezing) Qty: 90 1RF alprazolam 0.5 mg tablet 0.5 mg PO QHS PRN (Reason: sleep) Qty: 30 2RF potassium chloride 20 mEq tablet,ER particles/crystals 20 meq PO QDAY Qty: 90 1RF prednisone 20 mg tablet 40 mg PO DAILY Qty: 10 0RF Hold Instructions: pt has not picked up med from pharmacy [facility] 160-9-4.8 mcg/actuation HFA aerosol inhaler 2 inh inhalation QAM AND QPM triamcinolone acetonide 0.1 % cream 1 applic topical BID PRN (Reason: rash) Qty: 30 0RF furosemide [Lasix] 40 mg tablet 40 mg PO DAILY PRN (Reason: edema) benzonatate 100 mg capsule 100 mg PO TID PRN (Reason: cough) Qty: 30 1RF Did you review [place] [employer]OR for ALL controlled substances?: No Discussed opioids are addictive and Narcan is available by prescription or from pharmacy.: No Condition: Fair
== END 2023-09-12 13:45 | disposition home or self-care (01) | DRG 189 ==
LOC: ED 05:01 → MEDSURG B 08:25
PROVIDERS: ADMIT Hospitalist; ATTEND Physician Assistant